=== PATIENT | female | born 1965 | race Caucasian/White ===

== ENCOUNTER → 2018-01-16 06:29 | Outpatient (CLI) | payer BC, SELFPAY ==
--- NOTE | 2018-01-16 06:30 | NM_ITS ---
History and Indications: Chest pain, shortness of breath, palpitations, tobacco use, family history and abnormal EKG Procedure: Patient exercised on John protocol 10 minutes and 22 seconds, resting heart rate was 60 bpm resting blood pressure 158/81, with exercise maximum heart rate achieved was 1 70 bpm which is equal to 101% of the maximum predicted heart rate and a blood pressure was 184/80. Test was started due to shortness of breath and fatigue patient denied any complained of chest pain. Patient has good exercise capacity achieved 12.8mets of workload on treadmill, the blood pressure response to exercise was adequate. Electrocardiogram: Resting electrocardiogram showed sinus rhythm, with exercise there is less than 1.[address] segment depression noted from the baseline EKG. The EKG portion of the exercise Myoview is negative for ischemia. Cardiac stress and resting SPECT images: Cardiac stress and rest SPECT images were obtained using technetium 99 Myoview 31.5 mCi at stress and 10.6 mCi at rest, gated SPECT further analysis of segmental wall motion and calculation of the ejection fraction also done. Cardiac stress and rest SPECT images show uniform myocardial activity without any segmental perfusion abnormality, computer derived ejection fraction is over 65% with no obvious regional wall motion abnormality, right ventricle is normal size and contractility. Conclusion: 1. The EKG portion of the exercise Myoview is negative for ischemia, patient has good exercise capacity achieved 12.8mets of workload on treadmill, the blood pressure response to exercise was adequate, there was no exercise-induced chest discomfort. 2. No obvious scintigraphic evidence of reversible ischemia seen, computer derived ejection fraction is 65% with no obvious regional wall motion abnormality, right ventricle is normal size and contractility. 3. Normal exercise Myoview study.
== END ==
PROVIDERS: Family Provider Nurse Practitioner Family; PCP Internal Medicine Adolescent Medicine; Visit Provider Internal Medicine Adolescent Medicine
DX: R94.31 Abnormal electrocardiogram [ECG] [EKG] (principal); R07.9 Chest pain, unspecified
CPT/HCPCS: 78452; 93017; A9502

== ENCOUNTER → 2018-06-13 15:11 | Outpatient (CLI) | payer BC, SELFPAY ==
--- NOTE | 2018-06-13 15:18 | XR_ITS ---
XR hip LT 2-3V w/pelvis HISTORY: ITS.REASON: NURIA BURSTITIS,NURIA HIP PAIN ORDERING PHYSICIAN: Carito oMnet PATIENT AGE: 52 years COMPARISON: None FINDINGS: No fracture or dislocation is evident. No significant degenerative change. No lytic or blastic change. Unremarkable soft tissues IMPRESSION: Negative hip
--- NOTE | 2018-06-13 15:18 | XR_ITS ---
XR hip RT 2-3V w/pelvis HISTORY: ITS.REASON: NURIA BURSTITS,NURIA HIP PAIN ORDERING PHYSICIAN: Carito Monet PATIENT AGE: 52 years COMPARISON: None FINDINGS: No fracture or dislocation is evident. No significant degenerative change. No lytic or blastic change. Unremarkable soft tissues IMPRESSION: Negative hip
== END ==
PROVIDERS: PCP Internal Medicine Adolescent Medicine; Visit Provider Nurse Practitioner Family
DX: M70.61 Trochanteric bursitis, right hip (principal); M25.551 Pain in right hip; M70.62 Trochanteric bursitis, left hip; M25.552 Pain in left hip
CPT/HCPCS: 73502

== ENCOUNTER → 2018-06-23 13:21 | Outpatient (CLI) | payer BC, SELFPAY ==
--- NOTE | 2018-06-23 13:26 | XR_ITS ---
XR cervical spine w flex/ext CLINICAL INDICATION: ITS.REASON: CERVALGIA OF OCCIPITOATLANTO-AXIAL REGION ORDERING PHYSICIAN: Surya Hunt MD PATIENT AGE: 52 years Comparison: None FINDINGS: There is normal alignment. There is mild degenerative disc disease C5-6. No lytic or blastic change. The foramina are widely patent. No evidence of cervical rib. The occipital atlantal axial region has an unremarkable appearance. There is mild retrolisthesis of C5 on C6 of approximately 2 mm which is not significant change with flexion or extension. IMPRESSION: 1. Mild degenerative disc disease C5 on C6. 2. Minimal retrolisthesis of C5 of 2 to 3 mm which does not significantly change on flexion or extension
== END ==
PROVIDERS: PCP Internal Medicine Adolescent Medicine; Visit Provider Internal Medicine Adolescent Medicine
DX: M54.2 Cervicalgia (principal)
CPT/HCPCS: 72052

== ENCOUNTER 2018-06-23 15:25 | Outpatient (RCR) | payer BC, SELFPAY ==
--- NOTE | 2018-06-23 16:35 | HMH.PTOPEV ---
PT Outpatient Evaluation Rehab PT Outpatient Evaluation Start: 06/23/18 16:03 Freq: Status: Active Protocol: Document 06/23/18 16:04 ALLISON (Rec: 06/23/18 16:29 [email or web address] [id number]) Electronically Signed By Tremaine Park, PT 06/23/18 16:04 Outpatient Therapy Subjective History Subjective History Pt. is a 52 year old white female who presents to outpatient PT with R greater trochanteric burisits on insidious onset 4 months ago. Pt. reports having the same pain in her L hip of insidious onset at the same time that was resolved post steroid injection 3 weeks ago. Pt. reports having some relief in her R hip post injection, but has regressed after 2 weeks. Recent diagnostic imaging negative for a fracture/ dislocation in R hip per pt. report. PMH includes hysterectomy and 2 sections. Current medication include Duexis and a hormone patch. Chief Complaint Pain Symptom Type Other Symptoms Relieved By Heat Prescription Meds Symptoms Aggravated By Sitting Standing Bending/Stooping Physical Activity Walking Prior Functional Limitations None Current Functional Limitations None Symptom Description Constant but Variable Level of pain today (0-10) 2 Pain scale - at its best (0-10) 2 Pain scale - at its worst (0-10) 5 Hip/Knee Eval Gait Observation General Gait Pattern Observation No Deviations/Normal Assistive Device Assistive Devices None / NA Palpation Tenderness right Knee Palpation Finding None/Normal Knee Palpation Overall Comment grade 3 +TTP R greater trochanteric bursae Hip Palpation Findings Tenderness MMT left Hip Flexion Strength Grade 4- Good- Hip Abduction Strength Grade 4- Good- Hip Adduction Strength Grade 4- Good- Hip Extension Strength Grade 3+ Fair+ Gluteus Alexander Strength Grade 3+ Fair+ Hip External Rotation Strength Grade 3+ Fair+ Hip Internal Rotation Strength Grade 3+ Fair+ Knee Extension Strength Grade 4 Good Knee Fl
== END 2018-08-11 11:59 | disposition home or self-care (01) ==
LOC: PT 15:25
PROVIDERS: Family Provider Nurse Practitioner Family; PCP Internal Medicine Adolescent Medicine; Visit Provider Nurse Practitioner Family
DX: M70.62 Trochanteric bursitis, left hip (principal); M70.61 Trochanteric bursitis, right hip; M25.551 Pain in right hip; M25.552 Pain in left hip
CPT/HCPCS: 97163

== ENCOUNTER → 2018-07-02 14:54 | Outpatient (CLI) | payer BC, SELFPAY ==
[2018-07-02 15:48] LABS: Alanine Aminotransferase 21 U/L (12-78); Albumin Level 3.9 gm/dL (3.4-5.0); Albumin/Globulin Ratio 1.3 (1.1-1.8); Alkaline Phosphatase 81 U/L (46-116); Anion Gap 8.9 mEq/L (5-15); Aspartate Amino Transferase 16 U/L (15-37); Bilirubin,Total 0.8 mg/dL (0.2-1.0); Blood Urea Nitrogen 19 mg/dL (7-18); Calcium 9.1 mg/dL (8.5-10.1); Carbon Dioxide 31 mmol/L (21.0-32.0); Chloride 103 mmol/L (98-107); Cholesterol 209 mg/dL (140-200); Creatinine,Serum 0.57 mg/dL (0.55-1.02); Estimated Glomerular Filt Rate 111 ml/min (>60); GFR (African American) 135 ML/MIN (>60); Glucose 90 mg/dL (74-106); HDL Cholesterol 103 mg/dL (29-89); LDL Cholesterol 97 mg/dL (0-130); Potassium 3.9 mmoL/L (3.5-5.1); Sodium 139 mmol/L (136-145); Total Protein,Serum 6.9 gm/dL (6.4-8.2); Triglycerides 47 mg/dL (30-200); VLDL Cholesterol 9 mg/dL (0-40)
[2018-07-02 15:57] LABS: Basophils % 0.6 % (0.1-2.0); Eosinophils # 0.1 K/mm3 (0.0-0.4); Eosinophils % 2.2 % (0.1-12.0); Hematocrit 42.8 % (37.0-47.0); Hemoglobin 14.8 g/dL (12.2-16.2); Lymphocytes # 1.3 K/mm3 (0.7-4.5); Mean Corpuscular HGB Conc 34.5 g/dL (31.8-35.4); Mean Corpuscular Hemoglobin 35.3 pg (27.0-31.2); Mean Corpuscular Volume 102.3 fl (81-99); Mean Platelet Volume 7.6 fl (7.4-10.4); Monocytes # 0.2 K/mm3 (0.1-1.0); Monocytes % 5.1 % (1.7-9.3); Neutrophils # 2.8 K/mm3 (1.8-7.8); Platelet Count 174 K/mm3 (142-424); Red Blood Count 4.18 M/mm3 (4.20-5.40); Red Cell Distribution Width 13.1 % (11.5-17.5); White Blood Count 4.5 K/mm3 (4.8-10.8)
[2018-07-04 10:04] LABS: Vitamin B12 266 pg/mL (232-1245)
== END ==
PROVIDERS: PCP Internal Medicine Adolescent Medicine; Visit Provider Internal Medicine Adolescent Medicine
DX: Z00.00 Encounter for general adult medical examination without abnormal findings (principal); G44.52 New daily persistent headache (NDPH); D75.89 Other specified diseases of blood and blood-forming organs
CPT/HCPCS: 36415; 80053; 80061; 82607; 82746; 85025

== ENCOUNTER 2018-07-07 17:00 | Outpatient (RCR) | payer BC, SELFPAY ==
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
== END 2018-08-11 12:13 | disposition home or self-care (01) ==
LOC: PT 17:00
PROVIDERS: Visit Provider Internal Medicine Adolescent Medicine
DX: S16.1XXA Strain of muscle, fascia and tendon at neck level, initial encounter (principal)
CPT/HCPCS: 97010; 97014; 97035; 97110; 97140; 97163; G0283

== ENCOUNTER → 2018-07-11 07:44 | Outpatient (CLI) | payer BC, SELFPAY ==
--- NOTE | 2018-07-11 07:47 | MR_ITS ---
MR cervical spine wo con, MR 3-d myelogram/MRCP HISTORY: PT states pain at base of head X 1 month. Stiffness in neck and head with certain head movements or when pressure on either side of head. ITS.REASON: CERVICAL NEURALGIA ORDERING PHYSICIAN: Surya Hunt MD PATIENT AGE: 52 years Comparison: X-RAY 06-23-18 TECHNIQUE: Standard multiplanar multiecho sequences are performed without contrast. 3-D MIP and myelographic images are also rendered and reviewed FINDINGS: There is normal alignment. The craniocervical junction has an unremarkable appearance. C2-C3, C3-C4, and C4-C5 have an unremarkable appearance. C5-C6: Mild degenerative disc disease with minimal bulging disc and mild bilateral uncovertebral hypertrophy with mild bilateral foraminal narrowing. C6-C7: Small left paracentral disc protrusion with mild left lateral recess and foraminal narrowing. C7-T1: Unremarkable. No extruded herniated disc or canal stenosis. IMPRESSION: 1. Small left paracentral disc protrusion at C6-C7 with mild left lateral recess and foraminal narrowing. 2. Mild degenerative disc disease C5-C6 with minimal bulging disc and mild bilateral uncovertebral hypertrophy with mild bilateral foraminal narrowing 3. No canal stenosis or extruded herniated disc
== END ==
PROVIDERS: Family Provider Nurse Practitioner Family; PCP Internal Medicine Adolescent Medicine; Visit Provider Internal Medicine Adolescent Medicine
DX: M54.12 Radiculopathy, cervical region (principal)
CPT/HCPCS: 72141; 76376

== ENCOUNTER → 2018-09-19 15:13 | Outpatient (CLI) | payer BC, SELFPAY ==
--- NOTE | 2018-09-19 15:16 | XR_ITS ---
XR hand RT min 3V HISTORY: ITS.REASON: RT HAND PAIN ORDERING PHYSICIAN: Carito Monet PATIENT AGE: 53 years COMPARISON: Left hand same date FINDINGS: No fracture or dislocation. No lytic or blastic change. There is normal mineralization.. The joint spaces are well-preserved. No significant degenerative/arthritic changes. No erosive changes evident.. IMPRESSION: Negative, no acute finding
--- NOTE | 2018-09-19 15:16 | XR_ITS ---
XR hand LT min 3V HISTORY: ITS.REASON: LT HAND PAIN ORDERING PHYSICIAN: Carito Monet PATIENT AGE: 53 years COMPARISON: Right hand same date FINDINGS: No fracture or dislocation. No lytic or blastic change. There is normal mineralization.. The joint spaces are well-preserved. No significant degenerative/arthritic changes. No erosive changes evident.. IMPRESSION: Negative, no acute finding
== END ==
PROVIDERS: PCP Nurse Practitioner Family; Visit Provider Nurse Practitioner Family
DX: M79.642 Pain in left hand (principal); M79.641 Pain in right hand
CPT/HCPCS: 73130

== ENCOUNTER → 2019-06-25 09:01 | Outpatient (CLI) | payer BC, SELFPAY ==
[2019-06-25 14:47] LABS: Eosinophils # 0.1 K/mm3 (0.0-0.4); Eosinophils % 2.4 % (0.1-12.0); Hematocrit 42.4 % (37.0-47.0); Hemoglobin 13.8 g/dL (12.2-16.2); Lymphocytes # 1.3 K/mm3 (0.7-4.5); Lymphocytes % 30.6 % (10-50); Mean Corpuscular HGB Conc 32.6 g/dL (31.8-35.4); Mean Corpuscular Hemoglobin 34.1 pg (27.0-31.2); Mean Corpuscular Volume 104.5 fl (81-99); Mean Platelet Volume 10.7 fl (7.4-10.4); Monocytes # 0.2 K/mm3 (0.1-1.0); Monocytes % 4.4 % (1.7-9.3); Neutrophils # 2.6 K/mm3 (1.8-7.8); Neutrophils % 61.6 % (37.0-80.0); Platelet Count 198 K/mm3 (142-424); Red Blood Count 4.06 M/mm3 (4.20-5.40); Red Cell Distribution Width 13.3 % (11.5-17.5); White Blood Count 4.3 K/mm3 (4.8-10.8)
[2019-06-25 15:12] LABS: Alanine Aminotransferase 18 U/L (12-78); Albumin Level 3.8 gm/dL (3.4-5.0); Albumin/Globulin Ratio 1.3 (1.1-1.8); Alkaline Phosphatase 71 U/L (46-116); Anion Gap 12.9 mEq/L (5-15); Aspartate Amino Transferase 17 U/L (15-37); Bilirubin,Total 0.5 mg/dL (0.2-1.0); Blood Urea Nitrogen 13 mg/dL (7-18); Carbon Dioxide 27 mmol/L (21.0-32.0); Chloride 104 mmol/L (98-107); Chol/HDL Ratio 2.3 (1-3.5); Cholesterol 190 mg/dL (140-200); Creatinine,Serum 0.52 mg/dL (0.55-1.02); Estimated Glomerular Filt Rate 123 ml/min (>60); GFR (African American) 149 ML/MIN (>60); Glucose 86 mg/dL (74-106); HDL Cholesterol 84 mg/dL (29-89); LDL Cholesterol 91 mg/dL (0-130); Potassium 3.9 mmoL/L (3.5-5.1); Sodium 140 mmol/L (136-145); Total Protein,Serum 6.8 gm/dL (6.4-8.2); Triglycerides 74 mg/dL (30-200); VLDL Cholesterol 15 mg/dL (0-40)
[2019-06-26 17:15] LABS: Vitamin B12 548 pg/mL (232-1245)
== END ==
PROVIDERS: PCP Nurse Practitioner Family; Visit Provider Nurse Practitioner Family
DX: Z00.00 Encounter for general adult medical examination without abnormal findings (principal); E78.00 Pure hypercholesterolemia, unspecified; E53.8 Deficiency of other specified B group vitamins
CPT/HCPCS: 36415; 80053; 80061; 82607; 85025

== ENCOUNTER → 2020-03-16 11:15 | Outpatient (CLI) | payer BC, SELFPAY ==
--- NOTE | 2020-03-16 11:20 | XR_ITS ---
PROCEDURE: XR SACROILIAC JOINT BI MIN 3V CLINICAL INDICATION: LUMBAR NEURALGIA,SPINAL STENOSIS,SI JOINT INFLAMMATION COMPARISON: No exams were available for comparison FINDINGS: No fracture or dislocation. No lytic or blastic change. There is normal mineralization. The joint spaces are well-preserved. No significant degenerative/arthritic changes. No erosive changes evident. Other findings:None. IMPRESSION: No acute findings. Dictated by: Willy Armenta 03/16/2020 12:11 Electronically signed by Willy Armenta in [place] 03/16/2020 12:11
--- NOTE | 2020-03-16 11:20 | XR_ITS ---
PROCEDURE: XR LUMBAR SPINE MIN 4V CLINICAL INDICATION: LUMBAR NEURALGIA,SPINAL STENOSIS,SI JOINT INFLAMMATION COMPARISON: Mild lumbar scoliosis FINDINGS: There is mild lumbar scoliosis concave to the left. There is no spondylolysis, spondylolisthesis, fracture, or dislocation. The SI joints are intact. IMPRESSION: Mild lumbar scoliosis Dictated by: Willy Armenta 03/16/2020 12:13 Electronically signed by Willy Armenta in [place] 03/16/2020 12:13
== END ==
PROVIDERS: PCP Internal Medicine Adolescent Medicine; Visit Provider Internal Medicine Adolescent Medicine
DX: M54.16 Radiculopathy, lumbar region (principal); M48.062 Spinal stenosis, lumbar region with neurogenic claudication; M46.1 Sacroiliitis, not elsewhere classified
CPT/HCPCS: 72110; 72202

== ENCOUNTER → 2021-05-15 12:57 | Outpatient (POV) | payer BC, SELFPAY ==
[2021-05-15 13:16] VITALS: BP 143/73; PULSE 86; RESP 18; O2SAT 99; BMI 19.5
--- NOTE | 2021-05-15 15:27 | HMH.PMCON ---
Assessment and Plan (1) Low back pain Status: Acute Category: Medical Code(s): M54.5 - Low back pain (2) Bilateral sacroiliitis Status: Acute Category: Medical Code(s): M46.1 - Sacroiliitis, not elsewhere classified - Assessment and plan all Dx Assessment and Plan for all problems:: We will schedule the patient for bilateral SI joint injections. If the patient does not get relief with the injections, we will schedule her for an MRI of her lumbar spine. Patient is getting relief when applying pressure to her bilateral SI joints. She also has a positive Maxine's, compression, distraction test. Patient does have pain, however, with sitting, which improves with standing and walking. She has no pain at night with sleeping, and no pain upon awakening She does have an x-ray only of her lumbar spine. Again, with her symptoms, if she does not get relief with her injections, we will schedule an MRI of her lumbar spine. We also discussed ordering an SI belt to apply pressure to her bilateral SI joints. Risks and benefits of the procedure have been explained to the patient. Patient would like to proceed with the procedure. Possible side effects of corticosteroids have been discussed with the patient. Patient has been instructed to contact the clinic with any concerns before the next appointment. Dr. Ramos has reviewed this note and agrees with this plan of care. This note was dictated using voice recognition software and make contain errors or omissions. HPI - Data of Consult Patient: new to practice Consult date: 05/15/21 Requesting Physician: Meagan Goldstein APRN Primary Care Provider: Carito Monet APRN - Consult Narrative Reason for consult: Low back pain, bilateral hip pain History of present illness: Ms. Farrar is a 55 year old female who presents today for consultation for bilateral low back pain with radiation into her bilateral hips. Patient says that she initially had pain to her bilateral hips that has progressively worsened into low back pain. She says that the pain started approximately 1 year ago. The patient was referred to us by Nicole Monet. Patient rates her pain a 4 out of 10. She says her pain is worse when she is sitting and driving. She says her pain also worsens with raising from a sitting position. Patient does report her pain to be better when she is walking and standing. She reports the pain to feel as though the area is on fire . She also reports to be having some urinary complications. She says that she does not feel the urge to urinate. She says when she does go to the bathroom, however, she does not feel she is emptying properly. She does plan to see Nicole Monet APRN today for evaluation of possible urinary tract infection. Patient says that she has had x-rays of her lumbar spine which notes the patient to have arthritis. She says that she has also been undergoing physical therapy for more than 6 weeks and continues with home stretching and has taken Duexis. None of these conservative therapies have given her relief. The patient's pain does radiate to the knees as well as the calf area. She denies any pain to her bilateral buttock or groin. She does report to get relief when putting pressure on her low back area. She is tender to palpation to this area as well. Patient does not have any pain upon awakening, however, with continued movement she does report the pain to progressively worsen. She says that she has no pain with sleeping. CC: Meagan Goldstein APRN [facility] History I have reviewed the patient's past medical history: Yes *Have you ever received a pneumonia vaccine?: No *Have you received a flu vaccine this season?: No - *Social History Smoking Status: Never smoker Alcohol Intake: never *Occupational Status:: employed *Travel in the last 8 weeks: None Family Hx:: Non-contributory Review of Systems - Review of Systems Review of Systems General: No recent weight ch
== END ==
PROVIDERS: PCP Nurse Practitioner Family; Visit Provider Clinical Nurse Specialist Family Health
DX: M54.5 Low back pain (principal); M46.1 Sacroiliitis, not elsewhere classified
CPT/HCPCS: 99202; G0463

== ENCOUNTER 2021-05-26 14:00 | Day surgery (SDC) | payer BC, SELFPAY ==
[2021-05-26 14:15] VITALS: BP 127/59; PULSE 85; RESP 20; TEMP 36.6; O2SAT 100; BMI 18.2
[2021-05-26 14:21] VITALS: BP 126/70; PULSE 82; RESP 18; O2SAT 100
[2021-05-26 14:23] VITALS: BP 136/72; PULSE 83; RESP 18; O2SAT 100
--- NOTE | 2021-05-26 14:37 | HMH.PMPROC ---
- Procedure Date: 05/26/21 Time: 14:37 Anesthesiologist:: Omar Ramos MD Complications:: None Pre-procedure Diagnosis:: Sacroiliitis Post-procedure Diagnosis:: Same Indications for Procedure:: Patient is a pleasant 55-year-old white female who we are treating for bilateral hip pain. She is tender over both SI joints. She does have a positive Maxine's test bilaterally. She has positive SI joint compression test bilaterally. She has a positive distraction test bilaterally. We will do bilateral SI joint injections under fluoroscopy today to help her with her pain symptoms. Procedure Details:: B/L SI joint injection under fluoroscopy Informed consent was obtained and the risks and benefits of the procedure was explained to the patient. The patient was taken to the procedure room and placed prone on the procedure table. The patient was prepped using ChloraPrep. The skin and subcutaneous tissues overlying the SI joints were anesthetized using lidocaine. I placed a 22-gauge needle first in the left SI joint and second in the right SI joint. Needle placement was confirmed with dye. After this we injected 5 mL bupivacaine 0.25% and Depo-Medrol 40 mg into each SI joint. Patient tolerated the procedure well with no complication. Plan and Disposition:: We will follow-up with her in 2 weeks. Will reevaluate her symptoms at that time.
[2021-05-26 14:38] VITALS: BP 127/59; PULSE 85; RESP 20; TEMP 36.4; O2SAT 96
== END 2021-05-26 14:39 | disposition home or self-care (01) ==
LOC: SC.PAINP 14:05
PROVIDERS: PCP Nurse Practitioner Family; Visit Provider Anesthesiology
DX: M46.1 Sacroiliitis, not elsewhere classified (principal); Z72.0 Tobacco use; K21.9 Gastro-esophageal reflux disease without esophagitis
CPT/HCPCS: 27096; G0260; J1030; Q9966

== ENCOUNTER → 2021-06-22 14:06 | Outpatient (POV) | payer BC, SELFPAY ==
[2021-06-22 14:12] VITALS: BP 128/85; PULSE 87; RESP 18; O2SAT 99; BMI 21.9
--- NOTE | 2021-06-22 14:32 | P.CONS_ITS ---
[facility] Pain Management SOAP Note Subjective:: Patient is a 55-year-old white female who presents today for follow-up. The patient is being treated for low back pain with radiation into bilateral lower extremities stopping at the knee. The patient recently underwent bilateral SI joint injections. She did not get any relief. Patient says she has a grinding sensation with movement. She says the pain is worse when she is driving in a car with certain movements. She also says she has pain with repositioning. She does rate her pain a 4 out of 10. She has not had any imaging. She has been taking Advil with no relief. She has taken Duexis in the past but is unable to for the medication. Duexis did not give her any relief. Review of Systems General: No recent weight changes, no fever, no sleep disturbances Respiratory: No cough, no shortness of air, no recurring pulmonary infections Cardiovascular/peripheral vascular: No chest pain, no palpitations, no edema, no shortness of breath Gastrointestinal: No new onset incontinence, normal bowel movements reported Genitourinary: No new onset incontinence Musculoskeletal: Low back pain worse with bending and extension at waist, grinding sensation to back Psychiatric: [Normal mood/affect] Neurological: [Denies weakness in extremities], [denies balance issues] Objective:: Physical exam General: Alert and oriented x3, no acute distress, pleasant and cooperative, [on room air] Lungs: Respirations even and unlabored, symmetrical chest expansion Eyes: PERRL Musculoskeletal: Flexion and extension of lumbar [spine] somewhat guarded secondary to pain, strength in upper and lower extremities [5/5], [antalgic gait noted] Neurological: Speech clear, [solar panel technician equal], no gross sensory deficit Assessment:: Low back pain with lumbar radiculopathy symptoms Plan:: Patient has tried and failed conservative therapies of physical therapy for more than 6 weeks along with continued home stretching. She has also tried anti- inflammatories with no significant relief. She has been advised to stop taking Advil and we will start the patient on diclofenac 75 mg 1 tablet p.o. twice daily. She did not get relief with her bilateral SI joint injections. We will schedule the patient for an MRI of lumbar spine to determine pathology of pain. We will see her back in the clinic after her imaging for reevaluation symptoms. Patient has been instructed to contact the clinic if she has any concerns before next ointment. Patient has been instructed to contact the clinic with any concerns before the next appointment. Dr. Ramos has reviewed this note and agrees with this plan of care. This note was dictated using voice recognition software and make contain errors or omissions. [facility] History I have reviewed the patient's past medical history: Yes Medical History: Denies:: Cancer, Diabetes Mellitus Type 1, Diabetes Mellitus Type 2, MRSA, Seizures *Have you ever received a pneumonia vaccine?: Yes *Have you received a flu vaccine this season?: No Other Surgeries: Yes: Colostomy, , Hysterectomy-Total (HRT), Other (bladder sling) Amputation: No Fractures: No - *Social History Smoking Status: Current every day smoker Tobacco Type: cigarettes # Packs/Day (cigarettes): 1 Alcohol Intake: never *Occupational Status:: employed Housing: house Household Members: spouse *Travel in the last 8 weeks: None Family Hx:: Other
== END ==
PROVIDERS: Visit Provider Clinical Nurse Specialist Family Health
DX: M54.5 Low back pain (principal); M54.16 Radiculopathy, lumbar region
CPT/HCPCS: 99212; G0463

== ENCOUNTER → 2021-07-05 14:34 | Outpatient (CLI) | payer BC, SELFPAY ==
--- NOTE | 2021-07-05 14:37 | MR_ITS ---
PROCEDURE: MR LUMBAR SPINE WO CON CLINICAL INDICATION: BACK PAIN COMPARISON: MR SPCERVWO MR cervical spine wo con from 07/11/2018 CR XR LUMBAR SPINE MIN 4V from 03/16/2020 TECHNIQUE: Standard multiplanar multiecho sequences are performed without contrast. 3-D MIP and myelographic images are also rendered and reviewed FINDINGS: The spinal cord ends at the L1-L2 level. L1-L2: Unremarkable. L2-L3: Unremarkable. L3-L4: Unremarkable. L4-5: 3 mm anterolisthesis of L4 on L5 with facet and ligamentum hypertrophic change resulting in moderate bilateral lateral recess narrowing and mild bilateral foraminal narrowing with borderline canal stenosis. L5-S1: Unremarkable. No extruded herniated disc. There may be a small gallstone in the neck of the gallbladder. This however is equivocal as seen on the most superior image. IMPRESSION: 3 mm anterolisthesis of L4 on L5 with facet and ligamentum hypertrophic change resulting in moderate bilateral lateral recess narrowing and mild bilateral foraminal narrowing with borderline canal stenosis. No extruded herniated disc. Dictated by: Stewart Lopez MD 07/06/2021 07:28 Stewart Lopez MD in [place] 07/06/2021 07:28
== END ==
PROVIDERS: PCP Nurse Practitioner Family; Visit Provider Clinical Nurse Specialist Family Health
DX: M54.50 Low back pain, unspecified (principal)
CPT/HCPCS: 72148; 76376

== ENCOUNTER → 2021-07-06 17:36 | Outpatient (CLI) | payer BC, SELFPAY ==
[2021-07-06 19:42] LABS: Blood Urea Nitrogen 22 mg/dl (7-17); Estimated Glomerular Filt Rate 166 ml/min (>60); GFR (African American) 201 ML/MIN (>60)
== END ==
PROVIDERS: Visit Provider Internal Medicine Adolescent Medicine
DX: R10.30 Lower abdominal pain, unspecified (principal)
CPT/HCPCS: 36415; 82565; 84520

== ENCOUNTER → 2021-07-07 09:36 | Outpatient (CLI) | payer BC, SELFPAY ==
--- NOTE | 2021-07-07 09:40 | CT_ITS ---
PROCEDURE: CT ABDOMEN PELVIS WO/W CON CLINICAL INDICATION: LOWER ABD PAIN COMPARISON: No exams were available for comparison TECHNIQUE: IV Contrast: 75ML Isovue 370 Oral Contrast None Axial images obtained with sagittal and coronal reformats without and with contrast enhancement. All CT scans at the facility use one or more dose reduction, viz: automated exposure control, ma/kV adjustment per patient size (including targeted exams where dose is matched to indication, i.e. head), or iterative reconstruction technique. FINDINGS: LOWER THORAX: Unremarkable ABDOMEN & PELVIS: The liver, gallbladder, spleen, pancreas and adrenal glands have an unremarkable appearance. No renal mass or perinephric fluid collection. There is a 2 mm nonobstructing stone in the lower pole of the right kidney. No intestinal obstruction or free air. No evidence of appendicitis or diverticulitis. There is a mild amount of retained colonic feces. No bowel wall thickening.. No evidence of aortic aneurysm. There is some mild calcific plaque within the abdominal aorta and iliac vessels. Prior hysterectomy. No pelvic mass or abnormal fluid collection. No acute bony findings. There is a small sclerotic focus in the left sacrum inferiorly at the S3-S4 region which may be due to a bone island. IMPRESSION: No acute finding. 2 mm nonobstructing right renal calculus Dictated by: Stewart Lopez MD 07/08/2021 09:50 Stewart Lopez MD in [facility] 07/08/2021 09:50
== END ==
PROVIDERS: PCP Nurse Practitioner Family; Visit Provider Internal Medicine Adolescent Medicine
DX: R10.30 Lower abdominal pain, unspecified (principal)
CPT/HCPCS: 74178; Q9967

== ENCOUNTER → 2021-07-31 08:35 | Outpatient (POV) | payer BC, SELFPAY ==
[2021-07-31 09:09] VITALS: BP 139/81; PULSE 83; RESP 18; O2SAT 99; BMI 19.5
--- NOTE | 2021-07-31 09:22 | HMH.PAINSOAP ---
[facility] Pain Management SOAP Note Subjective:: Patient is a 55-year-old white female who presents today for follow-up. The patient recently had bilateral SI joint injections and got no relief. She rates her pain a 2 out of 10 with sitting at this time. Patient has pain that is worse with bending forward. She says when driving and twisting or turning at her waist she feels a grinding sensation that causes nausea. Bending forward to crab picker objects from the floor causes worse pain as well. She recently underwent an MRI. We did start the patient on diclofenac 75 mg 1 tablet p.o. twice daily at last visit. Patient reports that she is getting good relief with the oral medication. She says it seems to be taking her pain down significantly. She does use ice and heat therapies as needed. Patient is very active and does perform home stretching. Review of Systems General: No recent weight changes, no fever, no sleep disturbances Respiratory: No cough, no shortness of air, no recurring pulmonary infections Cardiovascular/peripheral vascular: No chest pain, no palpitations, no edema, no shortness of breath Gastrointestinal: No new onset incontinence, normal bowel movements reported Genitourinary: No new onset incontinence Musculoskeletal: Low back pain made worse with bending, turning twisting at waist Psychiatric: [Normal mood/affect] Neurological: [Denies weakness in extremities], [denies balance issues] Objective:: Physical exam General: Alert and oriented x3, no acute distress, pleasant and cooperative Lungs: Respirations even and unlabored, symmetrical chest expansion Eyes: PERRL Musculoskeletal: Flexion and extension of lumbar [spine] somewhat guarded secondary to pain, [antalgic gait noted], positive Kemps test Neurological: Speech clear, no gross sensory deficit Assessment:: 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 She does have facet and ligamentum hypertrophy at the L4-L5 area with recess narrowing per her report. The patient has otherwise unremarkable MRI. We discussed medial branch block/facet joint injections. She was given educational information today regarding the injections and expectations of the injections. She understands she would need to undergo 2 rounds of medial branch block/facet joint injections and have gotten up to 80% relief with these injections to proceed with an RFA. Patient is getting significant relief with diclofenac, and says if the medicine does not manage the pain she would like to proceed. She will contact the clinic if her pain worsens and we can schedule her for the medial branch block/facet joint injection bilaterally at L4-L5. Patient is not on any anticoagulation therapy. Patient is not diabetic. Possible side effects of corticosteroids have been discussed with the patient. Risks and benefits of the procedure have been explained to the patient. Patient would like to proceed with the procedure. Patient has been instructed to contact the clinic with any concerns before the next appointment. Dr. Ramos has reviewed this note and agrees with this plan of care. This note was dictated using voice recognition software and make contain errors or omissions. [facility] History I have reviewed the patient's past medical history: Yes Medical History: Denies:: Cancer, Diabetes Mellitus Type 1, Diabetes Mellitus Type 2, MRSA, Seizures *Have you ever received a pneumonia vaccine?: Yes *Have you received a flu vaccine this season?: Yes Other Surgeries: Yes: Colostomy, , Hysterectomy-Total (HRT), Other (bladder sling) Amputation: No Fractures: No - *Social History Smoking Status: Current every day smoker Tobacco Type: cigarettes # Packs/Day (cigarettes): 1 Alcohol Intake: never *Occupational Status:: employed Housing: house Household Members: spouse *Travel in the last 8 weeks: None Family
== END ==
PROVIDERS: Visit Provider Clinical Nurse Specialist Family Health
DX: M51.36 Other intervertebral disc degeneration, lumbar region (principal); M47.816 Spondylosis without myelopathy or radiculopathy, lumbar region; M54.06 Panniculitis affecting regions of neck and back, lumbar region
CPT/HCPCS: 99212; G0463

== ENCOUNTER → 2021-11-15 06:27 | Outpatient (CLI) | payer BC, SELFPAY ==
--- NOTE | 2021-11-15 | CA_ITS ---
APPROVED REPORT Exam: Exercise Treadmill Technologist: Kasia Martínez, Ht: 5 ft 6 in Wt: 125 lbs BSA: 1.64 m2 HR: 65 bpm BP: 112/55 mmHg Rhythm: NSR, cannot R/O old septal TN Medical History Medical History: Smoking Medications: Estradiol,,,,, Diclofenac,,,,, Cardiac Risk Factors: FHX of CAD, Smoking Stress Test Details Test: Axel HR Resting HR: 64 bpm Max Heart Rate (APMHR): 164.602176 bpm Max HR Achieved: 182 bpm Target HR (85% APMHR): 139.691683 bpm % of APMHR: 110.98 Recovery HR: 117 bpm BP Resting BP: 108/61 mmHg Max BP: 170/70 mmHg Recovery BP: 170.0/70.0 mmHg ECG Resting ECG: NSR, cannot R/O old septal TN Clinical Exercise duration: 09:31 min Highest Stage Achieved: Exercise capacity: 10.1 METs Stress ECG Conclusion During axel protocol patient experinced SOA, leg fatique. No CP noted. Occasional PAC. Allowing for motion artifact the ST response to exercise is within normal. .5mm horiz. ST depression inferiorly and laterally noted in recovery. Within normal GXT. Myoview images reported separately. Test Summary REST . . . . . . . Sitting REST . . . . . . . Standing REST 04:37 0.0 0.0 64 . 108/ 61 . . Stage 1 01:00 10.0 1.7 92 . . . . Stage 1 02:00 10.0 1.7 101 . . . . Stage 1 03:00 10.0 1.7 102 . . . . Stage 2 01:00 12.0 2.5 102 . . . . Stage 2 02:00 12.0 2.5 101 . 142/ 76 . . Stage 2 03:00 12.0 2.5 106 . 142/ 76 . . Stage 3 01:00 14.0 3.4 119 . . . . Stage 3 02:00 14.0 3.4 135 . . . . Stage 3 . . . . . . . Cardiolite injected Stage 3 03:00 14.0 3.4 144 . . . . Stage 4 00:31 16.0 4.2 56 . . . Stop exercise at 09:31 RECOVERY 01:00 0.0 0.0 121 . . . . RECOVERY 02:00 0.0 0.0 93 . 170/ 70 . . RECOVERY 03:00 0.0 0.0 86 . 118/ 62 . . RECOVERY 04:00 0.0 0.0 80 . 116/ 53 . . RECOVERY 05:00 0.0 0.0 78 . 110/ 57 . . RECOVERY 05:21 0.0 0.0 82 . 110/ 57 . . Electronically signed by : Domo Fontana MD 11/15/2021 12:34:17
--- NOTE | 2021-11-15 06:33 | NM_ITS ---
APPROVED REPORT Exam: Nuclear Stress Test Indication: Chest pain, SOB, Tobacco use, Family history Patient Location: Outpatient Stress Tech: Kasia Martínez MS Tech:Dominique Jackson, ARRT, RT (R)(N) Ht: 5 ft 6 in Wt: 123 lbs Bra Size: 36C HR: 64 bpm BP: 108/61 mmHg BSA: 1.63 m2 BMI: 19.8 History: Chest pain, SOB, Tobacco use, Family history Procedure: Patient exercised on John protocol 9:31 minutes and sec, resting heart rate 64 bpm, resting blood pressure 108/61 mmHg, with exercise maximum heart rate achived was 182 bpm which is 111 % of the maximum predicted heart rate and blood pressure was 170/70 mmHg. Test was stopped due to SOA and leg fatigue. Patient denied any complaint of chest pain. Patient has good exercise capacity, achieved 10.1 METs of workload on treadmill, the blood pressure response to exercise was Adequate. Electrocardiogram Resting electrocardiogram showed sinus rhythm, with exercise there is less than 1.[address] segment depression noted from the baseline EKG. The EKG portion of the exercise Myoview is negative for ischemia. Cardiac Stress and Resting SPECT Images: Cardiac Stress and Resting SPECT images were obtained using technetium 99m Myoview 29.7 mCi stress and 10.30 mCi at rest. Gated SPECT for analysis of segmental wall motion and calculation of the ejection fraction also done. Cardiac stress and rest SPECT images show uniform myocardial activity without segmental perfusion abnormality, computer derived ejection fraction is 60% with no regional wall motion abnormality, right ventricle is normal size and contractility. Conclusion: 1. The EKG portion of the exercise Myoview is negative for ischemia, patient has good exercise capacity achieved 10.1 METs of workload on treadmill, the blood pressure response to exercise was adequate, there was No exercise-induced chest discomfort. 2. No scintigraphic evidence of reversible ischemia seen, compared right ejection fraction is 60% with no regional wall motion abnormality, right ventricle is normal size and contractility. 3. Normal exercise Myoview study. Electronically signed by : Domo Fontana MD 11/15/2021 17:40:48
--- NOTE | 2021-11-15 07:51 | CA_ITS ---
APPROVED REPORT EXAM: Comprehensive 2D, Doppler, and color-flow Echocardiogram Dog Control Officer: Odalys Palacios, RCS, RVS Ht: 5 ft 6 in Wt: 125lbs BSA: 1.64 BP: 124/70 mmHg Indications: CP, Smoker, Family HX-HD 2D Dimensions Aortic Root 2.43 cm LA Volume 38.00 mL Left Atrium 2.33 cm LA Volume Index 23.395702 mL/m2 (M/F) 16-34 LVOT 1.76 cm (M/F) 1.5-2.5 M-Mode Dimensions RVDd 1.79 cm (0.9-2.6) LA Diam 2.95 cm (1.9-4.0) LVDd 4.41 cm (3.5-5.7) Ao Diam 2.95 cm (2.0-3.7) LVDs 2.91 cm (3.5-5.7) IVSd 0.67 cm (0.6-1.1) PWd 0.53 cm (0.6-1.1) EF (Teich) 63.20% EPSs 0.22 cm FS 34.00% EDV (Teich) 88.20 mL TAPSE 2.58 (<1.7) ESV (Teich) 32.50 mL LV Diastology E Decel Time 223.00 (160-240 msec) E/A Ratio 1.41 MED E' 9.30 (< 7 cm/sec) MED A' 10.20 cm/s E'/MED E' Ratio 7.61 (>14) LAT E' 11.00 (<10 cm/sec) LAT A' 8.40 cm/s E/LAT E' Ratio 6.44 (>14) Aortic Valve LVOT Max 94.00 (70-110 cm/s) LVOT VTI 17.86 cm AoV Peak Conrado. 136.00 (50-130 cm/s) AI PHT 803.00 ms AO Peak GR. 7.40 mmHg AO Mean GR. 3.70 (<5 mmHg) AO VTI 28.30 (18-25 cm) DOLLY (VTI) 1.54 (2.5-4.5 cm2) Mitral Valve MV A Velocity 50.00 (40-130 cm/s) E/A Ratio 1.41 MV Decel. Time 223.00 (160-240 ms) Pulmonary Valve PV Peak Velocity 74.00 (50-150 cm/s) OK End VMAX 139.00 cm/s Tricuspid Valve TR P. Velocity 203.00 cm/s RAP Estimate 10.00 mmHg RVSP 26.50 mmHg Left Ventricle Left atrium normal size, left ventricle is normal size, there is no concentric left ventricular hypertrophy, visually estimated ejection fraction 55% with no regional wall motion abnormality, diastolic parameters are within normal range. Right Ventricle Right atrium and right ventricle are normal size and contractility. Aortic Valve Aortic valve is minimally thickened and fibrosed, there is no aortic stenosis, there is trace aortic insufficiency. Mitral Valve Mitral valve is grossly normal, there is trace mitral regurgitation. Tricuspid Valve Tricuspid grossly normal, there is trace tricuspid regurgitation, calculated right ventricular systolic pressure within normal range. Pulmonic Valve Pulmonic valve is poorly visualized. Great Vessels Aortic root is normal size. Inferior vena cava is normal size with normal inspiratory collapse. Pericardium No significant pericardial effusion noted. Conclusion 1. Normal left ventricular size, preserved left ventricular systolic function, visually estimated ejection fraction 55% with no regional wall motion abnormality, diastolic parameters are within normal range. 2. Trace aortic, mitral and tricuspid regurgitation. Calculated right ventricular systolic pressure within normal range. 3. No significant pericardial effusion noted 4. Inferior vena cava normal size with normal inspiratory collapse. Electronically signed by : Domo Fontana MD 11/15/2021 19:31:30
--- NOTE | 2021-11-15 08:21 | HMH.ITSHM ---
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 []ESTRADIOL DICLOFENAC
--- NOTE | 2021-11-15 09:26 | CT_ITS ---
FINAL REPORT CLINICAL HISTORY: lung cancer screening..currently smoking half pack a day FINDINGS: Low-Dose Chest CT CTDI vol (mGy): 2.90 DLP (mGy-cm): 98.21 Axial images were obtained from the lung apex to the mid abdomen by computed tomography. Low-dose protocol was utilized. FINDINGS: CHEST: There is no axillary adenopathy. There is no hilar or mediastinal adenopathy. The heart is proper size. There is no pericardial or pleural effusion. Limited images of the upper abdomen are unremarkable. Lung window images demonstrate no suspicious infiltrate or nodule. IMPRESSION: Lung RADS category 1. Recommend 12 month follow-up low-dose chest CT. Reviewed, Interpreted and Dictated by Doug Crenshaw MD Transcribed by Shazia Holden Authenticated by Doug Crenshaw MD on 11/15/2021 11:15:08 AM [facility]
[2021-11-15 10:21] LABS: Basophils % 0.7 % (0.1-2.0); Eosinophils # 0.1 K/mm3 (0.0-0.4); Eosinophils % 1.7 % (0.1-12.0); Hematocrit 44.1 % (37.0-47.0); Hemoglobin 14.6 g/dL (12.2-16.2); Lymphocytes # 1.6 K/mm3 (0.7-4.5); Lymphocytes % 26.5 % (10-50); Mean Corpuscular Hemoglobin 34.6 pg (27.0-31.2); Mean Corpuscular Volume 104.9 fl (81-99); Mean Platelet Volume 8.6 fl (7.4-10.4); Monocytes # 0.3 K/mm3 (0.1-1.0); Monocytes % 4.1 % (1.7-9.3); Neutrophils # 4.1 K/mm3 (1.8-7.8); Platelet Count 208 K/mm3 (142-424); Red Blood Count 4.21 M/mm3 (4.20-5.40); Red Cell Distribution Width 12.6 % (11.5-17.5); White Blood Count 6.1 K/mm3 (4.8-10.8)
[2021-11-15 11:06] LABS: Chloride 98 mmol/L (98-107); Potassium 4.5 mmoL/L (3.5-5.1); Sodium 133 mmol/L (136-145)
[2021-11-15 11:08] LABS: Blood Urea Nitrogen 22 mg/dl (7-17); Estimated Glomerular Filt Rate 103 ml/min (>60); GFR (African American) 125 ML/MIN (>60)
[2021-11-15 11:09] LABS: Alanine Aminotransferase 34 U/L (12-78); Albumin Level 4.4 g/dl (3.5-5.0); Alkaline Phosphatase 78 U/L (38-126); Anion Gap 10.5 mEq/L (5-15); Aspartate Amino Transferase 38 U/L (14-36); Bilirubin,Direct 0.3 mg/dl (0.0-0.4); Bilirubin,Indirect 0.4 mg/dL (0.0-0.9); Bilirubin,Total 0.7 mg/dl (0.2-1.3); Bilirubin,Unconjugated 0.5 mg/dL (0.0-1.1); Carbon Dioxide 29 mmol/L (22.0-30.0); Cholesterol 201 mg/dl (140-200); Glucose 84 mg/dl (74-100); Triglycerides 82 mg/dl (30-150); VLDL Cholesterol 16 mg/dL (0-40)
[2021-11-15 11:10] LABS: Chol/HDL Ratio 2.1 (1-3.5); HDL Cholesterol 94 mg/dl (40-60)
[2021-11-15 11:21] LABS: Direct LDL Cholesterol 89.55 mg/dL (100-129)
[2021-11-15 11:25] LABS: Triiodothryronine (T3) Uptake 33 % (23.5-40.5)
[2021-11-15 11:26] LABS: Free Thyroxine Index 2.3 ug/dL (5.93-13.13)
[2021-11-15 11:39] LABS: Thyroid Stimulating Hormone 4.03 uIU/mL (0.465-4.68)
== END ==
PROVIDERS: PCP Nurse Practitioner Family; Visit Provider Physician Assistant
DX: R06.00 Dyspnea, unspecified (principal); R07.89 Other chest pain; I11.9 Hypertensive heart disease without heart failure; E11.9 Type 2 diabetes mellitus without complications; Z87.891 Personal history of nicotine dependence; Z12.2 Encounter for screening for malignant neoplasm of respiratory organs; Z82.49 Family history of ischemic heart disease and other diseases of the circulatory system
CPT/HCPCS: 36415; 71271; 78452; 80048; 80061; 80076; 84436; 84443; 84479; 85025; 93017; 93306; A9502

== ENCOUNTER → 2022-06-18 06:11 | Outpatient (CLI) | payer BC, SELFPAY | PROVIDERS: PCP Family Medicine; Visit Provider Family Medicine | DX: U07.1 COVID-19 (principal); R05.9 Cough, unspecified | CPT/HCPCS: C9803; U0003; U0005 ==

== ENCOUNTER 2023-10-08 17:53 | Outpatient (CLI) | payer BC, SELFPAY ==
[2023-10-08 17:22] LABS: Chloride 102 mmol/L (98-107); Sodium 136 mmol/L (136-145)
[2023-10-08 17:23] LABS: Potassium 4.3 mmoL/L (3.5-5.1)
[2023-10-08 17:24] LABS: Basophils # 0.1 K/mm3 (0-0.2); Basophils % 1.3 % (0.1-2.0); Eosinophils # 0.1 K/mm3 (0.0-0.4); Eosinophils % 1.8 % (0.1-12.0); Hematocrit 44.1 % (37.0-47.0); Hemoglobin 14.7 g/dL (12.2-16.2); Lymphocytes # 1.7 K/mm3 (0.7-4.5); Lymphocytes % 32.1 % (10-50); Mean Corpuscular HGB Conc 33.3 g/dL (31.8-35.4); Mean Corpuscular Hemoglobin 35.3 pg (27.0-31.2); Mean Corpuscular Volume 105.9 fl (81-99); Mean Platelet Volume 9.7 fl (7.4-10.4); Monocytes # 0.3 K/mm3 (0.1-1.0); Monocytes % 6.4 % (1.7-9.3); Neutrophils # 3.1 K/mm3 (1.8-7.8); Neutrophils % 58.4 % (37.0-80.0); Platelet Count 178 K/mm3 (142-424); Red Blood Count 4.16 M/mm3 (4.20-5.40); White Blood Count 5.3 K/mm3 (4.8-10.8)
[2023-10-08 17:25] LABS: Alanine Aminotransferase 23 U/L (12-78); Albumin/Globulin Ratio 1.5 (1.1-1.8); Alkaline Phosphatase 84 U/L (38-126); Anion Gap 10.3 mEq/L (5-15); Aspartate Amino Transferase 30 U/L (14-36); Bilirubin,Total 0.6 mg/dl (0.2-1.3); Blood Urea Nitrogen 17 mg/dl (7-17); Carbon Dioxide 28 mmol/L (22.0-30.0); Cholesterol 208 mg/dl (140-200); Estimated Glomerular Filt Rate 86 ml/min (>60); GFR (African American) 104 ML/MIN (>60); Globulin 2.6 g/dL (1.3-3.2); Total Protein,Serum 6.6 g/dl (6.3-8.2); Triglycerides 77 mg/dl (30-150); VLDL Cholesterol 15 mg/dL (0-40)
[2023-10-08 17:26] LABS: Chol/HDL Ratio 2.5 (1-3.5); Glucose 86 mg/dl (74-100); HDL Cholesterol 83 mg/dl (40-60)
[2023-10-08 17:37] LABS: Direct LDL Cholesterol 100.59 mg/dL (100-129)
[2023-10-08 17:57] LABS: Thyroid Stimulating Hormone 1.75 uIU/mL (0.465-4.68)
== END 2023-10-08 23:59 ==
LOC: LAB.DROPOF 17:53
PROVIDERS: PCP Family Medicine; Visit Provider Family Medicine
DX: R53.83 Other fatigue (principal); Z13.220 Encounter for screening for lipoid disorders
CPT/HCPCS: 80053; 80061; 84443; 85025

== ENCOUNTER 2023-11-04 13:59 | Outpatient (CLI) | payer BC, SELFPAY ==
--- NOTE | 2023-11-04 14:00 | CT_ITS ---
FINAL REPORT TECHNIQUE: Axial CT images of the chest were obtained without contrast. Low-dose protocol was utilized. This study was performed with techniques to keep radiation doses as low as reasonably achievable (ALARA). Individualized dose reduction techniques using automated exposure control or adjustment of mA and/or kV according to the patient's size were employed. CLINICAL HISTORY: lung cancer screening CURRENT SMOKER 1/2PPD X35 YEARS COMPARISON: 11/15/2021 FINDINGS: CT CHEST WITHOUT, LOW DOSE SCREENING CT Di Vol: 2.90 mGy DLP: 96.38 mGy*cm There is no axillary, mediastinal, or hilar adenopathy. The heart size is normal. There are mild coronary artery calcifications. There is no pleural or pericardial effusion. The lung windows show no suspicious mass or nodule. There is a calcified granuloma in the left lower lobe. Limited images of the upper abdomen demonstrate no acute findings.. IMPRESSION: LR Category 1: 12 month follow-up low-dose chest CT is recommended. Reviewed, Interpreted and Dictated by Tyler Darby III, MD Transcribed by Danielle Pringle Authenticated and [facility]
== END 2023-11-04 23:59 ==
LOC: RAD 14:00
PROVIDERS: PCP Family Medicine; Visit Provider Family Medicine
DX: Z87.891 Personal history of nicotine dependence (principal); Z12.2 Encounter for screening for malignant neoplasm of respiratory organs
CPT/HCPCS: 71271

== ENCOUNTER 2024-01-17 16:43 | Outpatient (CLI) | payer BC, SELFPAY ==
[2024-01-17 17:57] LABS: Cholesterol 215 mg/dl (140-200); Triglycerides 74 mg/dl (30-150); VLDL Cholesterol 15 mg/dL (0-40)
[2024-01-17 18:05] LABS: HDL Cholesterol 106 mg/dl (40-60)
[2024-01-17 18:08] LABS: Direct LDL Cholesterol 99.55 mg/dL (100-129)
== END 2024-01-17 23:59 | disposition home or self-care (01) ==
LOC: LAB.DROPOF 16:44
PROVIDERS: PCP Family Medicine; Visit Provider Family Medicine
DX: E78.5 Hyperlipidemia, unspecified (principal)
CPT/HCPCS: 80061

== ENCOUNTER 2024-04-24 11:22 | Outpatient (CLI) | payer BC, SELFPAY ==
[2024-04-24 16:35] LABS: Basophils # 0.1 K/mm3 (0-0.2); Basophils % 2.7 % (0.1-2.0); Eosinophils # 0.1 K/mm3 (0.0-0.4); Eosinophils % 2.2 % (0.1-12.0); Hematocrit 42.8 % (37.0-47.0); Hemoglobin 14.6 g/dL (12.2-16.2); Lymphocytes # 1.6 K/mm3 (0.7-4.5); Lymphocytes % 31.9 % (10-50); Mean Corpuscular HGB Conc 34.1 g/dL (31.8-35.4); Mean Corpuscular Hemoglobin 35.8 pg (27.0-31.2); Mean Corpuscular Volume 105.1 fl (81-99); Mean Platelet Volume 9.9 fl (7.4-10.4); Monocytes # 0.3 K/mm3 (0.1-1.0); Neutrophils # 2.8 K/mm3 (1.8-7.8); Neutrophils % 57.1 % (37.0-80.0); Platelet Count 182 K/mm3 (142-424); Red Blood Count 4.07 M/mm3 (4.20-5.40); Red Cell Distribution Width 13.7 % (11.5-17.5); White Blood Count 4.9 K/mm3 (4.8-10.8)
[2024-04-24 17:25] LABS: Alanine Aminotransferase 23 U/L (12-78); Albumin Level 3.9 g/dl (3.5-5.0); Albumin/Globulin Ratio 1.4 (1.1-1.8); Alkaline Phosphatase 77 U/L (38-126); Anion Gap 9.3 mEq/L (5-15); Aspartate Amino Transferase 31 U/L (14-36); Bilirubin,Total 0.8 mg/dl (0.2-1.3); Blood Urea Nitrogen 15 mg/dl (7-17); Calcium 9.3 mg/dl (8.4-10.2); Carbon Dioxide 27 mmol/L (22.0-30.0); Chloride 105 mmol/L (98-107); Chol/HDL Ratio 2.5 (1-3.5); Cholesterol 220 mg/dl (140-200); Estimated Glomerular Filt Rate 103 ml/min (>60); GFR (African American) 124 ML/MIN (>60); Globulin 2.8 g/dL (1.3-3.2); Glucose 86 mg/dl (74-100); HDL Cholesterol 89 mg/dl (40-60); Potassium 4.3 mmoL/L (3.5-5.1); Sodium 137 mmol/L (136-145); Total Protein,Serum 6.7 g/dl (6.3-8.2); Triglycerides 83 mg/dl (30-150); VLDL Cholesterol 17 mg/dL (0-40)
[2024-04-24 17:36] LABS: Direct LDL Cholesterol 101.05 mg/dL (100-129)
[2024-04-24 17:56] LABS: Thyroid Stimulating Hormone 1.06 uIU/mL (0.465-4.68)
== END 2024-04-24 23:59 | disposition home or self-care (01) ==
LOC: LAB.DROPOF 04-27 11:23
PROVIDERS: PCP Nurse Practitioner Family; Visit Provider Nurse Practitioner Family
DX: E78.5 Hyperlipidemia, unspecified (principal)
CPT/HCPCS: 80050; 80053; 80061; 84443; 85025

== ENCOUNTER 2025-03-17 08:43 | Outpatient (CLI) | payer BC, SELFPAY ==
--- OUTSIDE RECORDS SUMMARY | 2024-12-26 17:30 | XMS_ITS ---
Author Organization [facility] Address [address] [facility] [address] [place] [address] Care Team Providers Care Livestock Farmer Name Role Phone Surya Hunt Primary Care Provider [phone] Migration, Provider Unavailable Unavailable REAS[facility] FOR VISIT [facility] Encounter Medications Medication SIG (Take, Route, Fr equency, Duration) Notes Start Date End Date Status Estradiol 0.05 MG/24HR 1 PATCH applied t opically 2 times a week Active Omeprazole 20 MG 1 cap(s) orally once a day; Duration: 30 day(s) 05/05/2021 Active Diclofenac Sodium 75 MG 1 tab(s) orally 2 times a day; Duration: 90 days Active Acyclovir 800 MG 1 tab(s) orally 4 ti mes a day; Duration: 7 day(s) 12/29/2021 Active Encounters Encounter Location Date Provider Diagnosis [facility] [address] [facility] [address] [place] [address] 12/26/2024 Provider Migration Plan Of Treatment Medication Medication Name Sig Start Date Stop Date Notes Diclofenac Sodium 75 MG 1 tab(s) orally 2 times a day; Duration: 90 days Progress Notes * Africa CALVO GDOB: 5 (59 yo F)Acc No.[id number]:12/26/2024 Patient: Africa DOWNS Provider: Juan C duenas Migration :1965 A ge:59 Y S ex:Female Date:12/26/2024 Address:[address] [place] [address] [place] , [id number] Pcp:Surya Hunt Subjective: * Chief Complaints: * 1 . Multum To Medis[facility] Conversion Encounter. * Medical History: * Medications: T aking Estradiol 0.05 MG/24HR Patch Twice Weekly 1 PATCH applied topically 2 times a week , Taking Omeprazole 20 MG Capsule Delayed Release 1 cap(s) orally once a day , Taking Acyclovir 800 MG Tablet 1 tab(s) orally 4 times a day Objective: * Vitals: Assessment: Plan: * Treatment: * * Electronic signature of Prov ider Migration on 03/17/2025 at 08:44 AM EDT Sign off status: Pending * Provider: Juan C duenas Migration Date: 0 12/26/2024 Generated for Tawny gregory/Guy/Malia on: 0 03/17/2025 08:44 AM EDT
--- NOTE | 2025-03-17 08:45 | CA_ITS ---
APPROVED REPORT EXAM: Comprehensive 2D, Doppler, and color-flow Echocardiogram Material Requirements Planning Manager: Sheila Melchor RT(R) Ht: 5 ft 6 in Wt: 123lbs BSA: 1.63 BP: 112/67 mmHg Indications: chest pain, smoker, shortness of breath, family history of heart disease 2D Dimensions LVEF (Fried's) 55.80 % F: 54 - 74 LV Volume 70.80 mL F: 46 - 106 LV Volume Index 43.4 mL/m2 F: 29 - 61 LA Volume 14.10 mL LA Volume Index 8.65 mL/m2 (M/F) 16-34 EF AP4 55.50 % EF AP2 54.6 % EF BP 55.8 % GL Strain -17.1 % M-Mode Dimensions RVDd 2.45 cm (0.9-2.6) LA Diam 2.37 cm (1.9-4.0) LVDd 3.69 cm (3.5-5.7) LVDs 2.72 cm (3.5-5.7) IVSd 0.81 cm (0.6-1.1) PWd 0.81 cm (0.6-1.1) EF (Teich) 52.40% FS 26.30% EDV (Teich) 57.80 mL ESV (Teich) 27.50 mL LV Diastology E Decel Time 177 (160-240 msec) E/A Ratio 1.1 Mitral Valve MV E Max Conrado. 78.0 (40-130 cm/s) MV A Velocity 72.0 (40-130 cm/s) E/A Ratio 1.09 MV PHT 52.0 ms Tricuspid Valve TR P. Velocity 214.00 cm/s Left Ventricle The left ventricle is normal size. The left ventricular systolic function is normal. The left ventricular ejection fraction is within the normal range. There is normal left ventricular wall thickness. There is normal LV segmental wall motion. The left ventricular diastolic function is normal. LVEF is 55%. Right Ventricle The right ventricle is normal size. The right ventricular systolic function is normal. Atria The left atrium size is normal. The right atrium size is normal. There is no Doppler evidence of interatrial shunt. Aortic Valve The aortic valve opens well. There is no aortic valvular stenosis. Mild aortic regurgitation. Mitral Valve The mitral valve is normal in structure. No evidence of mitral valve stenosis. Mild mitral regurgitation. Tricuspid Valve Tricuspid valve is grossly normal in structure and function. Mild tricuspid regurgitation. RVSP is 20-25 mmHg. Pulmonic Valve The pulmonary valve is normal in structure. Trace pulmonic regurgitation. Great Vessels The aortic root is normal in size. IVC is normal in size and collapses >50% with inspiration. Pericardium There is no pericardial effusion. Other Information Study Quality: Adequate Conclusion Normal biventricular systolic function. Mild MR, mild AI, mild TR. Electronically signed by : Veronica Rodriguez MD 03/20/2025 14:12:59
--- OUTSIDE RECORDS SUMMARY | 2025-03-17 08:45 | XMS_ITS | Data Portability ---
Author Organization SUSAN VIKAS [facility] [place] Address [address] [facility] [place] [address] Care Team Providers Care [employer] Crewmember Name Role Phone DANK PORTER Waterproofer MIGUEL SIMON Primary Care Provider [phone] Assessment Encounter Date Assessment Date Assessment LastModified by Organization Details LastModified Time 08/18/2018 08/18/2018 53-year-old female presenting for evaluation of cervical neck pain. Patient reports a several month history of worsening right sided axial neck pain without any radicular symptoms. She notes disoriented business trip and enjoyed a lot of dancing which led to her current pain complaints. She is undergone physical therapy without improvement in symptoms. She does notice improvement with heat and massage therapy. She has tried Flexeril in the past without improvement. She has been seen and evaluated by neurosurgery, Dr. Reeves, and referred for conservative management options. Cervical MRI was reviewed with her today which showed left paracentric disc bulge at C6-7 as well as facet arthropathy noted at C5-6 and C6-7. On exam, patient demonstrates tenderness to palpation of the right cervical paraspinal musculature. Several trigger points are noted. Motor strength is preserved throughout. In terms of her current pain complaints, pain is likely multifactorial and related to both myofascial pain as well as facet arthropathy. However, the areas in which she has noted facet arthropathy do not correspond and relate her current pain location. She describes a specific right-sided axial neck pain just below the occiput. This pain does correspond to several trigger points noted in the area. We discussed trigger point injections to help improve pain complaints. Risks and benefits of the procedure were explained to the patient and she wishes to proceed. Trigger point injections to the right cervical paraspinal musculature were performed today. Patient tolerated the procedure well and there were no apparent complications. Patient will follow up in 1 month for further evaluation. Not available 08/18/2018 15:30:58 02/11/2019 02/11/2019 PREOPERATIVE DIAGNOSIS: Stress urinary incontinence. POSTOPERATIVE DIAGNOSIS: Stress urinary incontinence. PROCEDURE: Transobturator taping of suburethral sling with cystoscopy. ANESTHESIA: General. DRAINS: None. SPECIMENS: None. ESTIMATED BLOOD LOSS: 50 mL. SURGEON: Kike Gaviria MD BRIEF HISTORY: The patient is a 53-year-old female with progressive stress urinary incontinence. She has hypermobility of the bladder neck. We discussed suburethral sling placement. Risks were discussed extensively. She understands and wished to proceed. OPERATIVE NOTE: Under satisfactory general anesthesia, she was carefully placed in the lithotomy position. Genitalia was prepped and draped in normal fashion. A #60-St Lucian urethral catheter was placed with 10 mL in the balloon. A weighted vaginal speculum was placed. The bladder neck location was marked at the anterior vaginal wall transversely with a marking pen. Suburethral injection was performed of 0.25% Marcaine plain to the anterior vaginal wall distal to the bladder neck. A centimeter and half incision was then made distal to the bladder neck. A nice full thickness anterior vaginal pocket was placed usually up to the obturator ring area. Surgeon's finger was placed through this pocket to each obturator membrane. A small stab incision was made of each groin area lateral to the clitoris. The pigtail needles were passed on to the surgeon's finger at the obturator foramen and brought through the vaginal incision. A sling was brought into the space and loosely placed there. The Patino catheter was removed and cystoscopy was performed. There was no evidence of any injury or hindrance. With elevation of the sling, the bladder neck was certainly supported nicely. The cystoscope was withdrawn. The sling was placed without tension, but with support. The groin arms were cut below the skin level. The sling appear to be in a nice location. The anterior vaginal incision was closed with running 2-0 Vicryl and the stab incision was closed with Dermabond. The patient was awakened and extubated, transferred to the postop recovery room in stable condition. [email or web address] Not available 02/12/2019 03:54:39 Plan of Treatment Reminders Order Date Submit Date Provider Last Modified By Organization Details Last Modified Time Details Appointments None recorded. Lab urinalysis, dipstick, auto 2018 019 [email or web address] [facility], [address], [facility] [address], [place], [address], 9 10:49:26 urinalysis, dipstick, auto 2018 019 [email or web address] [facility], [address], [address], [place], [address], 9 21:55:52 Referral None recorded. Procedures None recorded. Surgeries sling operation for stress incontinenc e (SURG) 2018 019 [email or web address] [facility], [address] [facility], [place], [address], 9 14:10:12 Imaging None recorded. Medication Orders None recorded. Patient TargetsNo targets recorded. Patient Instructions Encounter Date Encounter Id Patient Instructions Last Modified By Organization Details Last Modified Time 08/18/2018 [id number] WRAP-UP Thank you for visiting [facility] at [facility] today. At today's visit the following were addressed: - Trigger point injections Thank you for visiting the [facility]. -Because of the high volume of calls we receive and the high demand for our clinical services, please allow for 24 hours for us to respond to patient calls. We are generally unable to discuss patient care advice over the telephone. If you are experiencing a medication side effect or complication, you can call and let us know, but we will typically not make a medication substitution or change management lead the telephone. -Acute exacerbations of pain and flare ups are quite common in chronic pain states and need to be dealt with as part of the long line teamster management plan. Please make an appointment with us if you wish to discuss a matter in any detail. Should you still need to call, please do so at . For additional information and services provided by our clinic you may visit our Pain Management Clinic website at: [email or web address] Thank you for choosing [facility]. It was a pleasure to see you in clinic today. Please contact us with any questions or concerns at . Not available 08/18/2018 13:52:55 03/13/2019 [id number] Urge Incontinenc e: Care Instructions [email or web address] Not available 03/16/2019 10:49:26 Reason for Referral None Reported. Results Created Date Observation Date Name Description Value Unit Range Abnormal Flag Note LastModifiedBy Organization Detail LastModifiedTime 03/13/20 19 03/13/2019 urina lysis , dipst ick, auto Unknown Analyte Yellow Not Available [facility] [address], [address], 03/13/2019 14:11:39 03/13/20 19 03/13/2019 urina lysis , dipst ick, auto Unknown Analyte Clear Not Available [facility] [address], [address], 03/13/2019 14:11:39 03/13/20 19 03/13/2019 urina lysis , dipst ick, auto Unknown Analyte 1.025 Not Available [facility] [address], [address], 03/13/2019 14:11:39 03/13/20 19 03/13/2019 urina lysis , dipst ick, auto Unknown Analyte 1.003 - 1.035 Not Available [facility] [address], [address], 03/13/2019 14:11:39 03/13/20 19 03/13/2019 urina lysis , dipst ick, auto Unknown Analyte 5.0 Not Available [facility] [address], [place], [address], 03/13/2019 14:11:39 03/13/20 19 03/13/2019 urina lysis , dipst ick, auto Unknown Analyte 5.0 - 8.0 Not Available [facility] [address] [facility] [address], [place], [address], 03/13/2019 14:11:39 03/13/20 19 03/13/2019 urina lysis , dipst ick, auto Unknown Analyte 75 Ela/ul (+) Not Available [facility] [address], [place], [address], 03/13/2019 14:11:39 03/13/20 19 03/13/2019 urina lysis , dipst ick, auto Unknown Analyte Negati ve Not Available [facility] [address], [place], [address], 03/13/2019 14:11:39 03/13/20 19 03/13/2019 urina lysis , dipst ick, auto Unknown Analyte Negati ve Not Available [facility] [address], [place], [address], 03/13/2019 14:11:39 03/13/20 19 03/13/2019 urina lysis , dipst ick, auto Unknown Analyte Negati ve Not Available [facility] [address], [place], [address], 03/13/2019 14:11:39 03/13/20 19 03/13/2019 urina lysis , dipst ick, auto Unknown Analyte Negtiv e Not Available [facility] [address], [place], [address], 03/13/2019 14:11:39 03/13/20 19 03/13/2019 urina lysis , dipst ick, auto Unknown Analyte Negati ve - Trace Not Available [facility] [address], [place], [address], 03/13/2019 14:11:39 03/13/20 19 03/13/2019 urina lysis , dipst ick, auto Unknown Analyte Normal Not Available [facility] [address], [place], [address], 03/13/2019 14:11:39 03/13/2003/13/2019 urina lysis , dipst ick, auto Unknown Analyte Normal Not Available [facility] [address], [address], 03/13/2019 14:11:39 03/13/20 19 03/13/2019 urina lysis , dipst ick, auto Unknown Analyte 15 mg/dl (Sm) Not Available [facility] [address], [address], 03/13/2019 14:11:39 03/13/2003/13/2019 urina lysis , dipst ick, auto Unknown Analyte Negati ve Not Available [facility] [address], [address], 03/13/2019 14:11:39 03/13/20 19 03/13/2019 urina lysis , dipst ick, auto Unknown Analyte 1 mg/dl Not Available [facility] [address], [place], [address], 03/13/2019 14:11:39 03/13/20 19 03/13/2019 urina lysis , dipst ick, auto Unknown Analyte Normal - 1mg/dl Not Available [facility] [address], [place], [address], 03/13/2019 14:11:39 03/13/20 19 03/13/2019 urina lysis , dipst ick, auto Unknown Analyte 1 mg/dl (+) Not Available [facility] [address], [place], [address], 03/13/2019 14:11:39 03/13/20 19 03/13/2019 urina lysis , dipst ick, auto Unknown Analyte Negati ve Not Available [facility] [address], [place], [address], 03/13/2019 14:11:39 03/13/20 19 03/13/2019 urina lysis , dipst ick, auto Unknown Analyte Negati ve Not Available [facility] [address], [place], [address], 03/13/2019 14:11:39 03/13/20 19 03/13/2019 urina lysis , dipst ick, auto Unknown Analyte Negati ve Not Available [facility] [address], [place], [address], 03/13/2019 14:11:39 03/13/20 19 03/13/2019 urina lysis , dipst ick, auto Unknown Analyte Clean Catch Not Available [facility] [address], [place], [address], 03/13/2019 14:11:39 03/13/20 19 03/13/2019 urina lysis , dipst ick, auto Unknown Analyte Automa yamilka Not Available [facility] [address], [place], [address], 03/13/2019 14:11:39 12/02/19 19 12/01/2018 urina lysis , dipst ick, auto Unknown Analyte Yellow Not Available [facility] [address], [place], [address], 12/01/2018 17:29:41 12/02/19 19 12/01/2018 urina lysis , dipst ick, auto Unknown Analyte Clear Not Available [facility] [address] [facility] [address], [place], [address], 12/01/2018 17:29:41 12/02/19 19 12/01/2018 urina lysis , dipst ick, auto Unknown Analyte 1.025 Not Available [facility] [address], [place], [address], 12/01/2018 17:29:41 12/02/19 19 12/01/2018 urina lysis , dipst ick, auto Unknown Analyte 1.003 - 1.035 Not Available [facility] [address], [place], [address], 12/01/2018 17:29:41 12/02/19 19 12/01/2018 urina lysis , dipst ick, auto Unknown Analyte 6.0 Not Available [facility] [address], [place], [address], 12/01/2018 17:29:41 12/02/19 19 12/01/2018 urina lysis , dipst ick, auto Unknown Analyte 5.0 - 8.0 Not Available [facility] [address], [place], [address], 12/01/2018 17:29:41 12/02/19 19 12/01/2018 urina lysis , dipst ick, auto Unknown Analyte Negati ve Not Available [facility] [address], [place], [address], 12/01/2018 17:29:41 12/02/19 19 12/01/2018 urina lysis , dipst ick, auto Unknown Analyte Negati ve Not Available [facility] [address], [place], [address], 12/01/2018 17:29:41 12/02/19 19 12/01/2018 urina lysis , dipst ick, auto Unknown Analyte Negati ve Not Available [facility] [address], [place], [address], 12/01/2018 17:29:41 12/02/19 19 12/01/2018 urina lysis , dipst ick, auto Unknown Analyte Negati ve Not Available [facility] [address], [place], [address], 12/01/2018 17:29:41 12/02/19 19 12/01/2018 urina lysis , dipst ick, auto Unknown Analyte Negtiv e Not Available [facility] [address], [place], [address], 12/01/2018 17:29:41 12/02/19 19 12/01/2018 urina lysis , dipst ick, auto Unknown Analyte Negati ve - Trace Not Available [facility] [address], [place], [address], 12/01/2018 17:29:41 12/02/19 19 12/01/2018 urina lysis , dipst ick, auto Unknown Analyte Normal Not Available [facility] [address], [place], [address], 12/01/2018 17:29:41 12/02/19 19 12/01/2018 urina lysis , dipst ick, auto Unknown Analyte Normal Not Available [facility] [address], [place], [address], 12/01/2018 17:29:41 12/02/19 19 12/01/2018 urina lysis , dipst ick, auto Unknown Analyte Negati ve Not Available [facility] [address], [place], [address], 12/01/2018 17:29:41 12/02/19 19 12/01/2018 urina lysis , dipst ick, auto Unknown Analyte Negati ve Not Available [facility] [address], [place], [address], 12/01/2018 17:29:41 12/02/19 19 12/01/2018 urina lysis , dipst ick, auto Unknown Analyte Normal Not Available [facility] [address], [place], [address], 12/01/2018 17:29:41 12/02/19 19 12/01/2018 urina lysis , dipst ick, auto Unknown Analyte Normal - 1mg/dl Not Available [facility] [address], [place], [address], 12/01/2018 17:29:41 12/02/19 19 12/01/2018 urina lysis , dipst ick, auto Unknown Analyte 1 mg/dl (+) Not Available [facility] [address] [place] [address] [address], [place], [address], 12/01/2018 17:29:41 12/02/19 19 12/01/2018 urina lysis , dipst ick, auto Unknown Analyte Negati ve Not Available [facility] [address] [place] [address] [address], [place], [address], 12/01/2018 17:29:41 12/02/1912/01/2018 urina lysis , dipst ick, auto Unknown Analyte Negati ve Not Available [facility] [address], [place], [address], 12/01/2018 17:29:41 12/02/19 19 12/01/2018 urina lysis , dipst ick, auto Unknown Analyte Negati ve Not Available [facility] [address], [place], [address], 12/01/2018 17:29:41 12/02/19 19 12/01/2018 urina lysis , dipst ick, auto Unknown Analyte Clean Catch Not Available [facility] [address], [place], [address], 12/01/2018 17:29:41 12/02/19 19 12/01/2018 urina lysis , dipst ick, auto Unknown Analyte Automa yamilka Not Available [facility] [address], [place], [address], 12/01/2018 17:29:41 07/24/20 18 07/11/2018 MRI, cervi xena spine , w/o contr ast No observ ation record ed. [facility] [address], [place], [address], 07/25/2018 09:55:23 07/24/20 18 07/11/2018 MRI, cervi xena spine , w/o contr ast No observ ation record ed. [facility] [address], [place], [address], 07/25/2018 11:49:20 Result Notes None recorded. 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 Procedures Surgical History Date Name Laterality Status Provider Name and Address Organization Details Recorded Time 08/18/20 18 Injection, Trigger Point; Single/Multi completed KAILEY PURCELL MD [address] [place], [address], [facility] 08/18/2018 15:31:17 delivery completed Jaimie Efrain [facility] 07/25/2018 09:59:46 hysterectomy completed Jaimie Zuniga [facility] 07/25/2018 09:59:54 Imaging Results None recorded. Procedure Notes None recorded. Medical Equipment None Reported. Allergies No known drug allergies Medications Name Sig Start Date Stop Date Status Note LastModified by Organization Details LastModified Time cyclobenza abimbola 10 mg tablet active dc Not Available Not Available No t Available fluconazol e 150 mg tablet active dc Not Available Not Available Not Available meloxicam 15 mg tablet active dc Not Available Not Available Not Available prednisone 20 mg tablet TAKE 3 TABLETS BY MOUTH ONCE DAILY FOR 3 DAYS THEN 2 ONCE DAILY FOR 2 DAYS THEN 1 ONCE DAILY FOR 1 DAY active dc Not Available Not Available No t Available estradiol 0.05 mg/24 hr semiweekly transderma l patch active Not Available Not Available Not Available valacyclov ir 500 mg tablet active Not Available Not Available Not Available sulfametho xazole 800 mg-trimeth oprim 160 mg tablet active dc Not Available Not Available No t Available acyclovir 800 mg tablet TAKE 1 TABLET BY MOUTH ONCE DAILY active Not Available Not Available No t Available prednisone 10 mg tablets in a dose pack active dc Not Available Not Available Not Available famotidine 20 mg tablet active dc Not Available Not Available Not Available benzonatat e 100 mg capsule active dc Not Available Not Available Not Available hydrocodon e 7.5 mg-acetami nophen 325 mg tablet active dc Not Available Not Available No t Available cyanocobal arce (vit B-12) 1,000 mcg/mL injection solution active dc Not Available Not Available Not Available triamcinol one acetonide 0.1 % topical ointment active Not Available Not Available Not Available diclofenac sodium 75 mg tablet,del ayed release TAKE 1 TABLET BY MOUTH TWICE DAILY active Not Available Not Available No t Available amoxicilli n 875 mg-potassi um clavulanat e 125 mg tablet active dc Not Available Not Available Not Available chlorhexid ine gluconate 0.12 % mouthwash LIGHTLY SWISH 1/4 (ONE-FOUR TH) CAPFUL OF SOLUTION IN MOUTH FOR 30-60 SECONDS AND SPIT OUT TWICE DAILY active dc Not Available Not Available No t Available ProAir HFA 90 mcg/actuat ion aerosol inhaler active dc Not Available Not Available Not Available Havrix (PF) 1,440 CHAUNCEY unit/mL intramuscu lar syringe active dc Not Available Not Available Not Available Myrbetriq 25 mg tablet,ext ended release Daily 2015 active Duration: 30 days;Freq uency: daily;Med ication Descripti on: mirabegro n; Dosage:1; Route:ora l; refills:1 1; Quantity: 30 tablet, extended releasedc Not Available Not Available Not Available Afluria Quad (PF) 60 mcg (15 mcg x 4)/0.5 mL IM syringe active Not Available Not Available N ot Available Iraida 0.075 mg/24 hr transderma l patch APPLY 1 PATCH TOPICALLY TWICE A WEEK active Not Available Not Available No t Available Vitals Date Recorded Body height Body mass index (BMI) Body weight Heart rate Systolic blood pressure Diastolic blood pressure Provider Name and Address Organization Details Last Updated DateTime 9 167.64 cm 20.5 kg/m2 16622.2 3 g 70 /min 112 mm[Hg] 73 mm[Hg] Millie Izaguirre [facility] 9 17:28:22 Date Recorded Body height Body mass index (BMI) Body weight Heart rate Systolic blood pressure Diastolic blood pressure Provider Name and Address Organization Details Last Updated DateTime 9 167.64 cm 20.5 kg/m2 11652.2 3 g 81 /min 116 mm[Hg] 72 mm[Hg] Violette Talley [facility] 9 14:08:37 Date Recorded Body height Body mass index (BMI) Body weight Systolic blood pressure Diastolic blood pressure Provider Name and Address Organization Details Last Updated DateTime 08/18/2018 167.64 cm 21 kg/m2 63506.01 g 122 mm[Hg] 82 mm[Hg] Chantelle Jennifer [facility] 8 13:32:51 Social History Question Answer Notes LastModified by Organizat ion Details LastModified Time Tobacco Smoking Status Current Every Day Smoker Jaimie aguirre [facility] 07/25/2018 09:59:28 How Much Tobacco Do You Chew? None [email or web address] Information not available 12/01/2018 Marital Status [email or web address] Informatio n not available 12/01/2018 What Was The Date Of Your Most Recent Tobacco Screening? 03/13/2019 Information not available 11/10/2019 How Much Tobacco Do You Smoke? 1 PPD Information not available 07/25/2018 Has Tobacco Cessation Counseling Been Provided? Yes [email or web address] Information not available 12/01/2018 On What Date Was Tobacco Cessation Counseling Provided? 03/13/2019 [email or web address] Information not available 03/13/2019 How Many Years Have You Smoked Tobacco? 20 Information not available 07/25/2018 Sex: Unknown Functional Status Question Answer Note LastModified by Organizat ion Details LastModified Time What is your level of alcohol consumption? Occasional [email or web address] Information not available 12/01/2018 Mental Status None recorded. Family History Nothing Reported. Medical History No medical history recorded. Gynecological HistoryNo gynecological history recorded. Obstetrics History GPAL:G 0 P 0 0 0 0 Past Encounters Encounter ID Performer Location Encounter Start Date Encounter Closed Date Diagnosis/Indication Diagnosis SNOMED-CT Code Diagnosis ICD10 Code Diagnosis Note [id number] BUD REEVES JR, MD NEUROSURG [facility] [address] [place] [address] 07/25/2018 09:51:51 07/30/2018 15:39:52 Neck pain 93720052 M54.2 [id number] KAILEY PURCELL MD PAIN MEDICINE CLOSED [address] [id number] 08/18/2018 13:19:12 08/18/2018 14:17:55 Myofascial pain 494567638 M79.10 [id number] KIKE GAVIRIA MD [facility] [address] [place] [address] 12/01/2018 15:36:33 12/01/2018 18:04:31 Female stress incontinence 53507986 N39.3 we discussed a suburethra l sling. We discussed potential risks including the use of surgical mesh. We discussed risks and benefits. We discussed general convalesce nce as well as the need for limited physical activity for 6 weeks postop. She will consider her options and contact me if she wishes to schedule. [id number] KIKE GAVIRIA MD SURGERY SCHEDULE [address] [place] [address] 02/11/2019 07:09:41 02/11/2019 07:13:57 [id number] KIKE GAVIRIA MD [facility] [address] [facility] [address] [place] [address] 03/13/2019 13:41:48 03/13/2019 14:29:55 Female stress incontinence 15800247 N39.3 resolved Urge incon tinence of urine [id number] N39.41 observe follow up one month [id number] DANK PORTER PA-C [place] [address] [place] [address] 01/21/2024 09:59:52 01/21/2024 12:03:29 Multiple benign melanocytic nevi [id number] D22.5 - Benign moles seen on exam today - SPF 30 or higher broad-spec trum sunscreen recommende d with re-applica tion every 2 hours - Discussed sun protection measures, including wide-brimm ed hat, sun-protec tive clothing, and avoidance of sun during peak hours of 10am-4pm - Avoid tanning beds as these can increase the chances of all 3 types of skin cancer - Instructed to monitor for changes and to call us for appointmen t with any changing or worrisome lesions Seborrheic keratosis [id number] 639209 L82.1 - Benign overgrowth s of skin - Hereditary Senile angioma 2687659 I 78.1 - Benign blood vessel growths - Hereditary Solar lentigo 67771024 L 81.4 - Benign brown spots - Sun-induce d Health Concerns Section Related Observation LastModified by Organization Detai ls LastModified Time None Recorded Concern Status LastModified by Organization Details LastModified Time None Recorded Advance Directives Directive None Recorded Payers Insurance Date Sequence Insurance Name Policy Number Policy Su Covered Member ID Su Member ID Guarantor Name 01/24/2024 1 [place] [id number] [place] Farrar [id number] [place] Farrar 10/21/2023 1 [place] [id number] [place] Farrar [id number] [place] Charan Notes Date Note Type Note Provider Name and Address Organization Details Recorded Time 08/18/2018 text/html Pain Management InitialReported bypatient.Quality:ach ing; dull Alleviating Factors:lying down; heat; rest Aggravating Factors:twisting; ROM Associated Symptoms:no weakness; no numbness; no tingling Prior Imaging:x ray; MRI Previous Injections:none Previous PT:did not help 53-year-old female presenting for evaluation of cervical neck pain. She reports axial neck pain with radiation through the shoulder blades and shoulders. Patient is improved with heat and massage. Pain is worse with ROM, especially rotation to the left. Patient has been seen and evaluated by neurosurgery, Dr. Reeves, referred for conservative management options. Cervical MRI showed small left paracentral disc bulge at C6-7 as well as mild facet arthropathy noted at C5-6 and C6-7. KAILEY PURCELL MD [address] [place] [address], [phone], [facility] 08/18/2018 15:32:59 12/01/2018 text/html patient was previously seen by me several years ago for bladder instability after hysterectomy. She was on anticholinergics for a few months but then resolved and has been on no therapy for several years. She has recently developed bothersome urinary incontinence. By her description this seems more stress incontinence. She occasionally has mild urgency but typically does not have incontinence associated with it. She typically has nocturia 1-2. She sometimes notices a slow urinary stream. She has had no issues with urinary infections. Most of her symptoms have been more bothersome over the last year to the point that she wears a small pad. KIKE GAVIRIA MD [address] [place] [address], [phone], [facility] 12/01/2018 21:56:37 03/13/2019 text/html patient is here for follow-up 1 month following TOT. All stress incontinence has resolved. She still has slight urgency symptoms. She also has some mild pressure in each groin area. This is not severe. We discussed trying her on an anticholinergic but after discussion and decided to observe for now. She is instructed to continue with conservative activity until 6 weeks postop. KIKE GAVIRIA MD [address] [place], [address], [facility] 03/16/2019 10:49:54 01/21/2024 text/html 1. Annual Skin ExamLast SE 2019No Hx of NMSC DANK PORTER PA-C [address] [place], [address], [facility] 01/21/2024 13:03:17 OBGyn Episode No OBEpisode recorded.
--- OUTSIDE RECORDS SUMMARY | 2025-03-17 08:45 | XMS_ITS | Clinical Summary ---
Author Organization [facility] Address [address] [place] [address] Care Team Providers Care Magnetic Locater Name Role Phone Kodak Melara MD Primary Care Provider Emily vailable Allergies No known active allergies Social History Tobacco Use Types Packs/Day Years Used Date Smoking Tobacco: Never Smokeless Tobacco: Never Tobacco Cessation:Counseling Given: Not Answered Alcohol Use Standard Drinks/Week Comments Never 0 (1 standard drink = 0.6 oz pur e alcohol) Comments Unknown Sex and Gender Information Value Date Recorded Sex Assigned at Not on file Legal Sex Female 7:36 PM EDT Gender Identity Not on file Sexual Orientation Not on file Last Filed Vital Signs Vital Sign Reading Time Taken Comments Blood Pressure 124/76 01/15/2023 4:08 PM EDT Pulse 77 01/15/2023 4:08 PM EDT Temperature 36.8 C (98.2 F) 01/15/2023 4:08 PM EDT Respiratory Rate 16 01/15/2023 4:08 PM EDT Oxygen Saturation 95% 01/15/2023 4:08 PM EDT Inhaled Oxygen Concentration - - Weight - - Height - - Body Mass Index - - Plan of Treatment Health Maintenance Due Date Last Done Comments [facility]-Depression Screening 1965 [facility]-HIV Screening 1965 [facility]-Hepatitis C Screening 1965 [facility]-Infant/Child/Adol SDOH Screenings 1965 [facility]- SDOH Screenings 1983 [facility]-Adult SDOH Screenings 1983 [facility]-DTaP,Tdap,and Td Vaccines (1 - Tdap) 1984 [facility]-Hepatitis B Vaccines (1 of 3 - 19+ 3-dose series) 1984 [facility]-Pap Smear 1986 [facility]-Cervical Cancer Screening 1995 [facility]-HPV/Cotest 1995 CT Colonography 2010 Colonoscopy 2010 FIT-DNA 2010 FIT 2010 FOBT 2010 Sigmoidoscopy 2010 [facility]-Colorectal Cancer Screening 2010 [facility]-Zoster Vaccines (1 of 2) 2015 [facility]-Pneumococcal Vaccine: 50+ Years (2 of 2 - PPSV23) 07/19/2018 07/19/2017 [id number] Vaccine ( - season) 2024 09/05/2021, 12/01/2020 [facility]-Breast Cancer Screening 07/27/202412/2021, 07/27/2022, 07/21/2021, Additional history exists [facility]-Influenza Vaccine (Season Ended) 2025 08/20/2022, 07/28/2020, 07/19/2017 HPV Vaccines Aged Out No longer eligi ble based on patient's age to complete this topic [facility]-HIB Vaccines Aged Out No longer e ligible based on patient's age to complete this topic [facility]Y-Hepatitis A Vaccines Aged Out No longer eligible based on patient's age to complete this topic UKY-IPV Vaccines Aged Out No longer e ligible based on patient's age to complete this topic [facility]Y-Rotavirus Vaccines Aged Out No lo nger eligible based on patient's age to complete this topic Insurance [facility] [employer] ANTH Care Teams Magnetic Locater Relationship Specialty Start Date End Date Kodak Melara MD PCP - General Family Medicine 01/15/23
--- OUTSIDE RECORDS SUMMARY | 2025-03-17 08:45 | XMS_ITS | Patient Health Record ---
Author Organization [facility] Address [address] [place] [address] [facility] [address] [place] [address] Care Team Providers Care Jelly Maker Name Role Phone Surya Hunt Primary Care Provider Migration, Provider Unavailable Unavailable Allergies No Known Allergies Reason For Referral No Information Medications Medication SIG (Take, Route, Fr equency, [...] a day; Duration: 7 day(s) 12/29/2021 Active Immunizations Vaccine Route Administration Date Status Comme nts Flublok IM Intramuscular 07/28/2020 Administered Problems Problem Type SNOMED Code ICD Code Onset Dates Problem Status W/U Status Risk Notes Problem Tobacco use (121629986) Tobacco use (Z72.0) Active confirmed Problem Chronic pain (70997818) Other chronic pain (G89.29) Active confirmed Problem Electrocardiogram abnormal (998074898) Abnormal EKG (R94.31) Active confirmed Problem New daily persistent headache (320469007291477) New daily persistent headache (G44.52) Active confirmed Problem Inflammation of righ t sacroiliac joint (0514917711) Inflammation of right sacroiliac joint (M46.1) Active confirmed Problem Mixed incontinence (293036371) Mixed stress and urge urinary incontinence (N39.46) Active confirmed Problem Hot flashes (959078898) Hot flashes (R23.2) Active confirmed Problem hypercholesterolemia (disorder) (10820651) Hypercholesteremia (E78.00) Active confirmed Problem Macrocytosis (92489833) Macrocytosis (D75.89) Active confirmed Problem Arthropathy of left sacroiliac joint (490766948779214) 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) Active confirmed Problem Amnesia (97073512) Poor short te rm memory (R41.3) Active confirmed Problem Gastroesophageal reflux disease (247574132) Gastroesophageal reflux disease, unspecified whether esophagitis present (K21.9) Active confirmed Encounters Encounter Location Date Provider Diagnosis [facility] [address] [facility] [address] [place] [address] 12/26/2024 Provider Migration Plan Of Treatment Pending Test Test Name Order Date MRI : Lumbosacral Spine 03/08/2020 N-Folate 08/25/2008 Urinalysis 02/06/2019 N-Iron 08/25/2008 X ray : Knee, Right 07/19/2017 Rapid Strep 07/26/2016 EKG : In House 06/14/2014 Physical Therapy 06/18/2018 Physical Therapy 06/13/2018 Physical Therapy 03/15/2020 Physical Therapy 06/25/2018 C-Sed Rate (ESR) 03/11/2020 C-FREE T4 01/15/2018 C-ALDOLASE 03/11/2020 C-LAUREN BOLTON PANEL 03/22/2020 C-ARTHRITIS 03/11/2020 C-MISC CULTURE 09/27/2016 C-LYME DISEASE PANEL 03/22/2020 C-CCP IGG Antibodies 03/22/2020 Urine Culture, Routine 07/12/2017 M-Complete Blood Count Auto Diff 019 M-Comprehensive Metabolic Panel 06/04/20 19 M-Lipid Panel 06/04/2019 M-Vitamin B12 06/04/2019 CT Scan : Chest, Lung Cancer Screening 0 12/26/2018 Insurance Providers Payer Name Payer Address Payer Phone Subscriber Number Group Number Insured Name Patient Relationship to Insured Coverage Start Date Coverage End Date [facility] [employer] [address] [place] [address] [id number] [place] Myrick Self - patient is the insured Medications Administered Medication Instructions Date of Administration Dosage Notes Bicillin CR (adult dose) 07/26/2016 1.2 units Cyanocobalamin/B-12 Pt's Own Medication 06/17/2014 Cyanocobalamin/B-12 Pt's Own Medication 06/24/2014 Cyanocobalamin/B-12 Pt's Own Medication 07/02/2014 1 mL Cyanocobalamin/B-12 Pt's Own Medication 07/08/2014 1 mL Cyanocobalamin/B-12 Pt's Own Medication 07/14/2014 0.5 mL Cyanocobalamin/B-12 Pt's Own Medication 07/22/2014 0.5 mL Cyanocobalamin/B-12 Pt's Own Medication 07/29/2014 Cyanocobalamin/B-12 Pt's Own Medication 08/04/2014 Cyanocobalamin/B-12 Pt's Own Medication 09/03/2014 Cyanocobalamin/B-12 Pt's Own Medication 10/11/2014 Cyanocobalamin/B-12 Pt's Own Medication 12/29/2014 Cyanocobalamin/B-12 Pt's Own Medication 02/17/2015 Cyanocobalamin/B-12 Pt's Own Medication 03/29/2015 Cyanocobalamin/B-12 Pt's Own Medication 07/10/2018 Cyanocobalamin/B-12 Pt's Own Medication 07/21/2018 Cyanocobalamin/B-12 Pt's Own Medication 07/31/2018 Cyanocobalamin/B-12 Pt's Own Medication 08/11/2018 Cyanocobalamin/B-12 Pt's Own Medication 08/22/2018 Cyanocobalamin/B-12 Pt's Own Medication 08/29/2018 1 mL Cyanocobalamin/B-12 Pt's Own Medication 09/04/2018 Cyanocobalamin/B-12 Pt's Own Medication 09/18/2018 Cyanocobalamin/B-12 Pt's Own Medication 01/07/2019 1 mL Cyanocobalamin/B-12 Pt's Own Medication 01/16/2019 Cyanocobalamin/B-12 Pt's Own Medication 01/27/2019 Cyanocobalamin/B-12 Pt's Own Medication 02/06/2019 1 mL Cyanocobalamin/B-12 Pt's Own Medication 03/18/2019 1 mL Cyanocobalamin/B-12 Pt's Own Medication 05/04/2019 Cyanocobalamin/B-12 Pt's Own Medication 05/29/2019 1 mL Kenalog 40mg 07/19/2017 40 mg Triamcinolone Acetonide 40mg Injection 05/30/2018 1 mL Triamcinolone Acetonide 40mg Injection 09/19/2018 1 mL Medical (General) History Medical History History ICD Code tobacco use asthma Surgical History Surgery Date(Month/Year) x 2 Total Hysterectomy 2014 bladder sling 01/2019 colonoscopy EGD with gastritis, proton pump inhibito r recommended 10/2021 Hospitalization History Reason Date(Month/Year) above 2014
== END 2025-03-17 23:59 | disposition home or self-care (01) ==
LOC: RT 08:43
PROVIDERS: PCP Nurse Practitioner Family; Visit Provider Nurse Practitioner Family
DX: I08.3 Combined rheumatic disorders of mitral, aortic and tricuspid valves (principal); F17.200 Nicotine dependence, unspecified, uncomplicated; Z82.49 Family history of ischemic heart disease and other diseases of the circulatory system
CPT/HCPCS: 93306

== ENCOUNTER 2025-03-31 07:28 | Outpatient (CLI) | payer BC, SELFPAY ==
--- OUTSIDE RECORDS SUMMARY | 2024-12-26 17:30 | XMS_ITS ---
Author Organization [facility] Address [address] [facility] [facility] [address] [facility] [address] [place] [address] Care Team Providers Care Splitting Machine Tender Name Role Phone Surya Hunt Primary Care Provider [phone] Migration, Provider Unavailable Unavailable REASON FOR VISIT [facility] Encounter Medications Medication SIG (Take, Route, [...] Active Encounters Encounter Location Date Provider Diagnosis [place] [facility] [address] [facility] [address] [place] [address] 12/26/2024 Provider Migration Plan Of Treatment Medication Medication Name Sig Start Date Stop Date Notes Diclofenac Sodium 75 MG 1 tab(s) orally 2 times a day; Duration: 90 days Progress Notes * Africa CALVO GDOB: 5 (59 yo F)Acc No.[id number]:12/26/2024 Patient: Africa DOWNS Provider: Juan C duenas Migration :1965 A ge:59 Y S ex:Female Date:12/26/2024 Address:[address] [place] [address] [place] , [id number] Pcp:Surya Hunt Subjective: * Chief Complaints: * [...] Treatment: * * Electronic signature of Prov cariner Migration on 03/31/2025 at 07:30 AM EDT Sign off status: Pending * Provider: Juan C duenas Migration Date: 0 12/26/2024 Generated for Tawny gregory/Guy/Malia on: 0 03/31/2025 07:30 AM EDT
--- NOTE | 2025-03-31 | CA_ITS ---
APPROVED REPORT Exam: Exercise Treadmill Technologist: Yumiko Bianchi Ht: 5 ft 6 in Wt: 123 lbs BSA: 1.63 m2 Medical History Medications: diclofenac sodium, estradiol. Stress Test Details Test: Exercise stress testing was performed using a John protocol. HR Resting HR: 65 bpm Max Heart Rate (APMHR): 161.904750 bpm Max HR Achieved: 146 bpm Target HR (85% APMHR): 136.727560 bpm % of APMHR: 90.68 Recovery HR: 90 bpm BP Resting BP: 136.0/64.0 mmHg Max BP: 160.0/88.0 mmHg Recovery BP: 148.0/75.0 mmHg ECG Resting ECG: SR. No isch or ectopy. Clinical Highest Stage Achieved: III Stress ECG Conclusion Injected @ 6:45. Symptoms: None. Arrhythmias/Ectopy: None. ST-T Changes: None. Electronically signed by : Veronica Rodriguez MD 04/02/2025 17:57:37
--- NOTE | 2025-03-31 07:30 | NM_ITS ---
APPROVED REPORT Exam: Nuclear Stress Test Indication: Chest pain, SOB, Fatigue, Tobacco use, Family history Patient Location: Outpatient Stress Tech: Yumiko Phillips [place] Tech:Dominique Jackson, ARRT, RT (R)(N) Ht: 5 ft 6 in Wt: 123 lbs Bra Size: 38C HR: 66 bpm BP: 136/64 mmHg BSA: 1.63 m2 TID: 1.18 BMI: 19.8 History: Chest pain, SOB, Fatigue, Tobacco use, Family history Procedure: Patient exercised on John protocol 7:49 minutes and sec, resting heart rate 66 bpm, resting blood pressure 136/64 mmHg, with exercise maximum heart rate achived was 149 bpm which is 92 % of the maximum predicted heart rate and blood pressure was 160/88 mmHg. Test was stopped due to SOB. Patient denied any complaint of chest pain. Patient has average exercise capacity, achieved 10.1 METs of workload on treadmill, the blood pressure response to exercise was normal. Cardiac Stress and Resting SPECT Images: Cardiac Stress and Resting SPECT images were obtained using technetium 99m Myoview 30.9 mCi stress and 10.64 mCi at rest. Resting and stress imaging in supine and prone positions demonstrate no evidence of fixed or reversible perfusion defects. Gated imaging demonstrates normal global and regional LV systolic function. LVEF is calculated at 58%. Conclusion: No evidence of fixed or reversible perfusion defects. Gated imaging demonstrates normal global and regional LV systolic function. LVEF is calculated at 58%. Electronically signed by : Veronica Rodriguez MD 04/02/2025 17:43:06
--- OUTSIDE RECORDS SUMMARY | 2025-03-31 07:30 | XMS_ITS | Clinical Summary ---
Author Organization [facility] Address [address] [place] [address] Care Team Providers Care Timing Machine Operator Name Role Phone Kodak Melara MD Primary [...] [facility]-HIV Screening 1965 [facility]-Hepatitis C Screening 1965 [facility]-/Child/Adol SDOH Screenings 1965 [facility]- SDOH Screenings 1983 [...] (2 of 2 - PPSV23) 07/19/2018 07/19/2017 [id number] Vaccine (3 - season) 2024 09/05/2021, 12/01/2020 [facility]-Breast Cancer Screening 07/27/202412/2021, 07/27/2022, 07/21/2021, Additional history exists [facility]-Influenza Vaccine (#1) 05/24/202508/20, 07/28/2020, 07/19/2017 HPV Vaccines Aged Out No [...] [facility] [employer] Care Teams Timing Machine Operator Relationship Specialty Start Date End Date Kodak Melara MD PCP - General Family Medicine 01/15/23
--- OUTSIDE RECORDS SUMMARY | 2025-03-31 07:31 | XMS_ITS | Data Portability ---
Author Organization SUSAN VIKAS [facility] [place] [facility] Address [address] [facility] [address] [place] [address] Care Team Providers Care Spa Experience Coordinator Name Role Phone DANK PORTER Sensitometrist [phone] MIGUEL SIMON Primary Care Provider Assessment Encounter Date Assessment Date Assessment LastModified [...] prepped and draped in normal fashion. A #60-Portuguese urethral catheter was placed with 10 mL [...] recorded. Lab urinalysis, dipstick, auto 2018 019 [email or web address] [facility], [address], [facility] [address], [place], [address], 9 10:49:26 urinalysis, dipstick, auto 2018 019 [email or web address] [facility], [address], [address], [place], [address], 9 21:55:52 Referral None recorded. Procedures None recorded. Surgeries sling operation for stress incontinenc e (SURG) 2018 019 [facility] Professional [facility]es, [address] [facility], [address], [place], [address], 9 14:10:12 Imaging None recorded. Medication Orders None recorded. Patient TargetsNo targets recorded. Patient Instructions Encounter Date Encounter Id Patient Instructions Last Modified By Organization Details Last Modified Time 08/18/2018 [id number] WRAP-UP Thank you for visiting [facility] at [facility] today. At today's visit the following were addressed: - Trigger point injections Thank you for visiting the [facility]. -Because of the high volume [...] not make a medication substitution or change room attendant the telephone. 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 Please make an appointment with us if you wish to discuss a matter in any detail. Should you still need to call, please do so at . For additional information and services provided by our clinic you may visit our Pain Management Clinic website at: [email or web address] Thank you for choosing [facility]. It was a pleasure to see you in clinic today. Please contact us with any questions or concerns at . Not available 08/18/2018 13:52:55 03/13/2019 [id number] Urge Incontinenc e: Care Instructions [email or web address] Not available 03/16/2019 10:49:26 Reason for Referral None Reported. Results Created Date Observation Date Name Description Value Unit Range Abnormal Flag Note LastModifiedBy Organization Detail LastModifiedTime 03/13/20 19 03/13/2019 urina lysis , dipst ick, auto Unknown Analyte Yellow Not Available [facility] [address], [address], 03/13/2019 14:11:39 03/13/20 19 03/13/2019 urina lysis , dipst ick, auto Unknown Analyte Clear Not Available [facility] [address], [address], 03/13/2019 14:11:39 03/13/20 19 03/13/2019 urina lysis , dipst ick, auto Unknown Analyte 1.025 Not Available [facility] [address], [address], 03/13/2019 14:11:39 03/13/20 19 03/13/2019 urina lysis , dipst ick, auto Unknown Analyte 1.003 - 1.035 Not Available [facility] [address], [address], 03/13/2019 14:11:39 03/13/20 19 03/13/2019 urina lysis , dipst ick, auto Unknown Analyte 5.0 Not Available [facility] [address], [place], [address], 03/13/2019 14:11:39 03/13/20 19 03/13/2019 urina lysis , dipst ick, auto Unknown Analyte 5.0 - 8.0 Not Available [facility] [address] [facility] [address], [place], [address], 03/13/2019 14:11:39 03/13/20 19 03/13/2019 urina lysis , dipst ick, auto Unknown Analyte 75 Ela/ul (+) Not Available [facility] [address], [place], [address], 03/13/2019 14:11:39 03/13/20 19 03/13/2019 urina lysis , dipst ick, auto Unknown Analyte Negati ve Not Available [facility] [address], [place], [address], 03/13/2019 14:11:39 03/13/20 19 03/13/2019 urina lysis , dipst ick, auto Unknown Analyte Negati ve Not Available [facility] [address], [place], [address], 03/13/2019 14:11:39 03/13/20 19 03/13/2019 urina lysis , dipst ick, auto Unknown Analyte Negati ve Not Available [facility] [address], [place], [address], 03/13/2019 14:11:39 03/13/20 19 03/13/2019 urina lysis , dipst ick, auto Unknown Analyte Negtiv e Not Available [facility] [address], [place], [address], 03/13/2019 14:11:39 03/13/20 19 03/13/2019 urina lysis , dipst ick, auto Unknown Analyte Negati ve - Trace Not Available [facility] [address], [place], [address], 03/13/2019 14:11:39 03/13/20 19 03/13/2019 urina lysis , dipst ick, auto Unknown Analyte Normal Not Available [facility] [address], [place], [address], 03/13/2019 14:11:39 03/13/2003/13/2019 urina lysis , dipst ick, auto Unknown Analyte Normal Not Available [facility] [address], [address], 03/13/2019 14:11:39 03/13/20 19 03/13/2019 urina lysis , dipst ick, auto Unknown Analyte 15 mg/dl (Sm) Not Available [facility] [address], [address], 03/13/2019 14:11:39 03/13/2003/13/2019 urina lysis , dipst ick, auto Unknown Analyte Negati ve Not Available [facility] [address], [address], 03/13/2019 14:11:39 03/13/20 19 03/13/2019 urina lysis , dipst ick, auto Unknown Analyte 1 mg/dl Not Available [facility] [address], [place], [address], 03/13/2019 14:11:39 03/13/20 19 03/13/2019 urina lysis , dipst ick, auto Unknown Analyte Normal - 1mg/dl Not Available [facility] [address], [place], [address], 03/13/2019 14:11:39 03/13/20 19 03/13/2019 urina lysis , dipst ick, auto Unknown Analyte 1 mg/dl (+) Not Available [facility] [address], [place], [address], 03/13/2019 14:11:39 03/13/20 19 03/13/2019 urina lysis , dipst ick, auto Unknown Analyte Negati ve Not Available [facility] [address], [place], [address], 03/13/2019 14:11:39 03/13/20 19 03/13/2019 urina lysis , dipst ick, auto Unknown Analyte Negati ve Not Available [facility] [address], [place], [address], 03/13/2019 14:11:39 03/13/20 19 03/13/2019 urina lysis , dipst ick, auto Unknown Analyte Negati ve Not Available [facility] [address], [place], [address], 03/13/2019 14:11:39 03/13/20 19 03/13/2019 urina lysis , dipst ick, auto Unknown Analyte Clean Catch Not Available [facility] [address], [place], [address], 03/13/2019 14:11:39 03/13/20 19 03/13/2019 urina lysis , dipst ick, auto Unknown Analyte Automa yamilka Not Available [facility] [address], [place], [address], 03/13/2019 14:11:39 12/02/19 19 12/01/2018 urina lysis , dipst ick, auto Unknown Analyte Yellow Not Available [facility] [address], [place], [address], 12/01/2018 17:29:41 12/02/19 19 12/01/2018 urina lysis , dipst ick, auto Unknown Analyte Clear Not Available [facility] [address] [facility] [address], [place], [address], 12/01/2018 17:29:41 12/02/19 19 12/01/2018 urina lysis , dipst ick, auto Unknown Analyte 1.025 Not Available [facility] [address], [place], [address], 12/01/2018 17:29:41 12/02/19 19 12/01/2018 urina lysis , dipst ick, auto Unknown Analyte 1.003 - 1.035 Not Available [facility] [address], [place], [address], 12/01/2018 17:29:41 12/02/19 19 12/01/2018 urina lysis , dipst ick, auto Unknown Analyte 6.0 Not Available [facility] [address], [place], [address], 12/01/2018 17:29:41 12/02/19 19 12/01/2018 urina lysis , dipst ick, auto Unknown Analyte 5.0 - 8.0 Not Available [facility] [address], [place], [address], 12/01/2018 17:29:41 12/02/19 19 12/01/2018 urina lysis , dipst ick, auto Unknown Analyte Negati ve Not Available [facility] [address], [place], [address], 12/01/2018 17:29:41 12/02/19 19 12/01/2018 urina lysis , dipst ick, auto Unknown Analyte Negati ve Not Available [facility] [address], [place], [address], 12/01/2018 17:29:41 12/02/19 19 12/01/2018 urina lysis , dipst ick, auto Unknown Analyte Negati ve Not Available [facility] [address], [place], [address], 12/01/2018 17:29:41 12/02/19 19 12/01/2018 urina lysis , dipst ick, auto Unknown Analyte Negati ve Not Available [facility] [address], [place], [address], 12/01/2018 17:29:41 12/02/19 19 12/01/2018 urina lysis , dipst ick, auto Unknown Analyte Negtiv e Not Available [facility] [address], [place], [address], 12/01/2018 17:29:41 12/02/19 19 12/01/2018 urina lysis , dipst ick, auto Unknown Analyte Negati ve - Trace Not Available [facility] [address], [place], [address], 12/01/2018 17:29:41 12/02/19 19 12/01/2018 urina lysis , dipst ick, auto Unknown Analyte Normal Not Available [facility] [address], [place], [address], 12/01/2018 17:29:41 12/02/19 19 12/01/2018 urina lysis , dipst ick, auto Unknown Analyte Normal Not Available [facility] [address], [place], [address], 12/01/2018 17:29:41 12/02/19 19 12/01/2018 urina lysis , dipst ick, auto Unknown Analyte Negati ve Not Available [facility] [address], [place], [address], 12/01/2018 17:29:41 12/02/19 19 12/01/2018 urina lysis , dipst ick, auto Unknown Analyte Negati ve Not Available [facility] [address], [place], [address], 12/01/2018 17:29:41 12/02/19 19 12/01/2018 urina lysis , dipst ick, auto Unknown Analyte Normal Not Available [facility] [address], [place], [address], 12/01/2018 17:29:41 12/02/19 19 12/01/2018 urina lysis , dipst ick, auto Unknown Analyte Normal - 1mg/dl Not Available [facility] [address], [place], [address], 12/01/2018 17:29:41 12/02/19 19 12/01/2018 urina lysis , dipst ick, auto Unknown Analyte 1 mg/dl (+) Not Available [facility] [address] [place] [address] [address], [place], [address], 12/01/2018 17:29:41 12/02/19 19 12/01/2018 urina lysis , dipst ick, auto Unknown Analyte Negati ve Not Available [facility] [address] [place] [address] [address], [place], [address], 12/01/2018 17:29:41 12/02/1912/01/2018 urina lysis , dipst ick, auto Unknown Analyte Negati ve Not Available [facility] [address], [place], [address], 12/01/2018 17:29:41 12/02/19 19 12/01/2018 urina lysis , dipst ick, auto Unknown Analyte Negati ve Not Available [facility] [address], [place], [address], 12/01/2018 17:29:41 12/02/19 19 12/01/2018 urina lysis , dipst ick, auto Unknown Analyte Clean Catch Not Available [facility] [address], [place], [address], 12/01/2018 17:29:41 12/02/19 19 12/01/2018 urina lysis , dipst ick, auto Unknown Analyte Automa yamilka Not Available [facility] [address], [place], [address], 12/01/2018 17:29:41 07/24/20 18 07/11/2018 MRI, cervi xena spine , w/o contr ast No observ ation record ed. [facility] [address], [place], [address], 07/25/2018 09:55:23 07/24/20 18 07/11/2018 MRI, cervi xena spine , w/o contr ast No observ ation record ed. [facility] [address], [place], [address], 07/25/2018 11:49:20 Result Notes None recorded. 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 Procedures Surgical History Date Name Laterality Status Provider Name and Address Organization Details Recorded Time 08/18/20 18 Injection, Trigger Point; Single/Multi completed KAILEY PURCELL MD [address] [place], [address], [facility] 08/18/2018 15:31:17 delivery completed Jaimie Efrain [facility] 07/25/2018 09:59:46 hysterectomy completed Jaimie Zuniga [facility] 07/25/2018 09:59:54 Imaging Results None recorded. Procedure [...] index (BMI) Body weight Heart rate Systolic And Diastolic Provider Name and Address Organization Details Last Updated DateTime 12/01/2018 167.64 cm 20.5 kg/m2 42579.23 g 70 /min 112/73 mm[Hg] Millie Izaguirre [facility] 12/01/2018 17:28:22 Date Recorded Body height Body mass index (BMI) Body weight Heart rate Systolic And Diastolic Provider Name and Address Organization Details Last Updated DateTime 03/13/2019 167.64 cm 20.5 kg/m2 64667.23 g 81 /min 116/72 mm[Hg] Violette Talley [facility] 03/13/2019 14:08:37 Date Recorded Body height Body mass index (BMI) Body weight Systolic And Diastolic Provider Name and Address Organization Details Last Updated DateTime 08/18/2018 167.64 cm 21 kg/m2 96083.01 g 122/82 mm[Hg] Chantelle Rodriguez [facility] 08/18/2018 13:32:51 Social History Question Answer Notes LastModified by Organizat ion Details LastModified Time Tobacco Smoking Status Current Every Day Smoker Jaimie [email or web address], [facility] 07/25/2018 09:59:28 How Much Tobacco Do You Chew? None [email or web address] Information not available 12/01/2018 Marital Status [email or web address] Informatio n not available 12/01/2018 What Was The Date Of Your Most Recent Tobacco Screening? 03/13/2019 Information not available 11/10/2019 How Much Tobacco Do You Smoke? 1 PPD Information not available 07/25/2018 Has Tobacco Cessation Counseling Been Provided? Yes [email or web address] Information not available 12/01/2018 On What Date Was Tobacco Cessation Counseling Provided? 03/13/2019 [email or web address] Information not available 03/13/2019 How Many Years Have You Smoked Tobacco? 20 Information not available 07/25/2018 Sex: Unknown Functional Status Question Answer Note LastModified by Organizat ion Details LastModified Time What is your level of alcohol consumption? Occasional [email or web address] Information not available 12/01/2018 Mental Status None recorded. Family History Nothing Reported. Medical History No medical history recorded. Gynecological HistoryNo gynecological history recorded. Obstetrics History GPAL:G 0 P 0 0 0 0 Past Encounters Encounter ID Performer Location Encounter Start Date Encounter Closed Date Diagnosis/Indication Diagnosis SNOMED-CT Code Diagnosis ICD10 Code Diagnosis Note [id number] BUD REEVES JR, MD [facility] [address] [place] [address] 07/25/2018 09:51:51 07/30/2018 15:39:52 Neck pain 88742139 M54.2 [id number] KAILEY PURCELL MD [facility] [address] [place] [address] 08/18/2018 13:19:12 08/18/2018 14:17:55 Myofascial pain 586317384 M79.10 [id number] KIKE GAVIRIA MD [facility] [address] [place] [address] 12/01/2018 15:36:33 12/01/2018 18:04:31 Female stress incontinence 74893951 N39.3 we discussed a suburethra l sling. We discussed potential risks including the use of surgical mesh. We discussed risks and benefits. We discussed general convalesce nce as well as the need for limited physical activity for 6 weeks postop. She will consider her options and contact me if she wishes to schedule. [id number] KIKE GAVIRIA MD SURGERY SCHEDULE [address] [place] [address] 02/11/2019 07:09:41 02/11/2019 07:13:57 [id number] KIKE GAVIRIA MD [facility] [address] [place] [address] 03/13/2019 13:41:48 03/13/2019 14:29:55 Female stress incontinence 97070417 N39.3 resolved Urge incon tinence of urine 77088159 N39.41 observe follow up one month [id number] DANK PORTER PA-C [facility] [address] [place] [address] 01/21/2024 09:59:52 01/21/2024 12:03:29 Multiple benign melanocytic nevi 017576598 D22.5 - Benign moles seen on exam [...] changing or worrisome lesions Seborrheic keratosis 394 350271 L82.1 - Benign overgrowth s of skin - Hereditary Senile angioma 5354789 I 78.1 - Benign blood vessel growths - Hereditary Solar lentigo 80967953 L 81.4 - Benign brown spots - Sun-induce d Health Concerns Section Related Observation LastModified by Organization Detai ls LastModified Time None Recorded Concern Status LastModified by Organization Details LastModified Time None Recorded Advance Directives Directive None Recorded Payers Insurance Date Sequence Insurance Name Policy Number Policy Su Covered Member ID Su Member ID Guarantor Name 01/24/2024 1 [employer]) [id number] [place] [id number] [employer] 10/21/2023 1 [employer] ([employer]) [id number] [place] [employer] [id number] [employer] Notes Date Note Type Note Provider Name [...] at C5-6 and C6-7. KAILEY PURCELL MD [address] [place] [address], [address], [facility] 08/18/2018 15:32:59 12/01/2018 text/html patient was previously [...] wears a small pad. KIKE GAVIRIA MD [address] [place] [address] [place], [address], [facility] 12/01/2018 21:56:37 03/13/2019 text/html patient is here [...] 6 weeks postop. KIKE GAVIRIA MD [address] [place], [address], [facility] 03/16/2019 10:49:54 01/21/2024 text/html 1. Annual Skin ExamLast SE 2019No Hx of NMSC DANK PORTER PA-C [address] [place], [address], [facility] 01/21/2024 13:03:17 OBGyn Episode No OBEpisode recorded.
--- OUTSIDE RECORDS SUMMARY | 2025-03-31 07:31 | XMS_ITS | Patient Health Record ---
Author Organization formerly [facility] D DEBORAH Address [address] [facility] [address] [place] [address] Care Team Providers Care Transmission Supervisor Name Role Phone Surya Hunt Primary Care [...] W/U Status Risk Notes Problem Tobacco use (467974360) Tobacco use (Z72.0) Active confirmed Problem Chronic pain (63647373) Other chronic pain (G89.29) Active confirmed Problem Electrocardiogram abnormal (251317358) Abnormal EKG (R94.31) Active confirmed Problem New daily persistent headache (143552317689188) New daily persistent headache (G44.52) Active confirmed Problem Inflammation of righ t sacroiliac joint (1554758190) Inflammation of right sacroiliac joint (M46.1) Active confirmed Problem Mixed incontinence (788732828) Mixed stress and urge urinary incontinence (N39.46) Active confirmed Problem Hot flashes (463893011) Hot flashes (R23.2) Active confirmed Problem hypercholesterolemia (disorder) (28860046) Hypercholesteremia (E78.00) Active confirmed Problem Macrocytosis (48361395) Macrocytosis (D75.89) Active confirmed Problem Arthropathy of left sacroiliac joint (017336234282006) 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) Active confirmed Problem Amnesia (12626826) Poor short te rm memory (R41.3) Active confirmed Problem Gastroesophageal reflux disease (038179629) Gastroesophageal reflux disease, unspecified whether esophagitis present (K21.9) Active confirmed Encounters Encounter Location Date Provider Diagnosis [facility] DEBORAH [address] [facility] [address] [place] [address] 12/26/2024 Provider Migration Plan Of Treatment Pending Test Test Name Order Date MRI : Lumbosacral Spine 03/08/2020 N-Folate 08/25/2008 Urinalysis 02/06/2019 N-Iron 08/25/2008 X ray : Knee, Right 07/19/2017 Rapid Strep 07/26/2016 EKG : In House 06/14/2014 Physical Therapy 06/25/2018 Physical Therapy 06/18/2018 Physical Therapy 06/13/2018 Physical Therapy 03/15/2020 C-Sed Rate (ESR) 03/11/2020 C-FREE T4 01/15/2018 [...] Insured Coverage Start Date Coverage End Date [facility] [address] [place] [address] [id number] [place] Myrick Self - patient is the [...]
[2025-03-31] MEDS: SODIUM CHLORIDE 0.9% 10ML SYR (RAD ONLY) 10 ML IV ×2 (09:04)
[2025-03-31] MEDS: ISOTOPE MYOVIEW (PER STUDY) 1 DOSE IV (09:04)
[2025-03-31 10:56] LABS: Hematocrit 41.8 % (37.0-47.0); Hemoglobin 14.8 g/dL (12.2-16.2); Immature Granulocytes % 0.3 %; Mean Corpuscular HGB Conc 35.4 g/dL (31.8-35.4); Mean Corpuscular Hemoglobin 35.1 pg (27.0-31.2); Mean Corpuscular Volume 99.1 fl (81-99); Nucleated Red Blood Cells % 0 %; Platelet Count 166 K/mm3 (142-424); Red Blood Count 4.22 M/mm3 (4.20-5.40); Red Cell Distribution Width-SD 44.3 fL; White Blood Count 6.3 K/mm3 (4.8-10.8)
[2025-03-31 11:32] LABS: Alanine Aminotransferase 14 U/L (12-78); Albumin Level 4.3 g/dl (3.5-5.0); Alkaline Phosphatase 75 U/L (38-126); Anion Gap 14.4 mEq/L (5-15); Aspartate Amino Transferase 24 U/L (14-36); Bilirubin,Direct 0.2 mg/dl (0.0-0.4); Bilirubin,Indirect 0.6 mg/dL (0.0-0.9); Bilirubin,Total 0.8 mg/dl (0.2-1.3); Bilirubin,Unconjugated 0.6 mg/dL (0.0-1.1); Blood Urea Nitrogen 15 mg/dl (7-17); Calcium 9.7 mg/dl (8.4-10.2); Carbon Dioxide 30 mmol/L (22.0-30.0); Chloride 95 mmol/L (98-107); Cholesterol 211 mg/dl (140-200); Creatinine,Serum 0.60 mg/dl (0.52-1.04); Estimated Glomerular Filt Rate 102 ml/min (>60); GFR (African American) 124 ML/MIN (>60); Glucose 90 mg/dl (74-100); HDL Cholesterol 95 mg/dl (40-60); Magnesium 1.7 mg/dl (1.6-2.3); Potassium 4.4 mmoL/L (3.5-5.1); Sodium 135 mmol/L (136-145); Total Protein,Serum 6.9 g/dl (6.3-8.2); Triglycerides 106 mg/dl (30-150)
[2025-03-31 11:49] LABS: Free T4 (Free Thyroxine) 1.12 ng/dl (0.78-2.19)
[2025-03-31 12:02] LABS: Thyroid Stimulating Hormone 2.62 uIU/mL (0.465-4.68)
== END 2025-03-31 23:59 | disposition home or self-care (01) ==
LOC: RAD 07:28
PROVIDERS: PCP Nurse Practitioner Family; Visit Provider Nurse Practitioner Family
DX: R07.9 Chest pain, unspecified (principal); R06.02 Shortness of breath; R53.83 Other fatigue; Z72.0 Tobacco use
CPT/HCPCS: 36415; 78452; 80048; 80061; 80076; 82565; 83735; 84439; 84443; 84520; 85025; 93016; 93017; 93018; A9502